=== PATIENT | female | born 1985 | race Two or more races ===

== ENCOUNTER 2016-05-15 20:28 | Emergency (ER) | payer OTHER ==
[2016-05-15 20:37] VITALS: BP 121/76; PULSE 74; TEMP 98.1; BMI 31.2
--- NOTE | 2016-05-15 20:42 | PDOC ---
History of Present Illness - General Chief Complaint: Sore Throat Stated Complaint: SORE THROAT Time Seen by Provider: 05/15/16 20:37 History Source: Patient Exam Limitations: No Limitations - History of Present Illness Timing/Duration: 24 hours Associated Symptoms: reports: fever/chills ("100.3" subsided). denies: chest pain, cough, diaphoresis, headaches, loss of appetite, nausea/vomiting, shortness of breath Past History - Travel Traveled outside of the country in the last 30 days: No Close contact w/someone who was outside of country & ill: No - Past Medical History Allergies/Adverse Reactions: Allergies Allergy/AdvReac Type Severity Reaction Status Date / Time butorphanol tartrate Allergy Itching Verified 06/27/15 19:46 [From Stadol] Home Medications: Ambulatory Orders NK [No Known Home Medication] 05/15/16 Asthma: Yes Cancer: No Cardiac Disorders: No Diabetes: No HTN: No ( related) Seizures: No Thyroid Disease: No - Reproductive History (#): 3 Para: 1 Cervical CA: No Dysfunctional Uterine Bleeding: No Ectopic : No Endometrial CA: No Polycystic Ovaries: No Therapeutic (s) & number: No Tubal Ligation: No Spontaneous : 1 - Immunization History Immunization Up to Date: Yes - Psycho/Social/Smoking Cessation Hx Anxiety: No Suicidal Ideation: No Smoking Status: No Smoking History: Never smoked Have you smoked in the past 12 months: No Number of Cigarettes Smoked Daily: 0 Hx Alcohol Use: No Drug/Substance Use Hx: No Hx Substance Use Treatment: No Review of Systems - Review of Systems Able to Perform ROS?: Yes Comments:: 05/15/16 20:40 CONSTITUTIONAL: Absent: fever, chills, diaphoresis, generalized weakness, malaise, loss of appetite HEENT: +sore throat "white dot" to right tonsil Absent: rhinorrhea, nasal congestion, throat pain, throat swelling, difficulty swallowing, mouth swelling, ear pain, eye pain, visual Changes CARDIOVASCULAR: Absent: chest pain, loss of consciousness, palpitations, irregular heart rate, peripheral edema RESPIRATORY: Absent: cough, shortness of breath, dyspnea with exertion, orthopnea, wheezing, stridor, hemoptysis GASTROINTESTINAL: Absent: abdominal pain, abdominal distension, nausea, vomiting, diarrhea, constipation, melena, hematochezia GENITOURINARY: Absent: dysuria, frequency, urgency, hesitancy, hematuria, flank pain, genital pain MUSCULOSKELETAL: Absent: myalgia, arthralgia, joint swelling SKIN: Absent: rash, itching, pallor Is the patient limited [place] proficient: No *Physical Exam - Vital Signs Last Vital Signs Temp Pulse Resp BP Pulse Ox 98.1 F 74 16 121/76 98 05/15/16 20:35 05/15/16 20:35 05/15/16 20:35 05/15/16 20:35 05/15/16 20:35 - Physical Exam Comments: 05/15/16 20:39 GENERAL: Well developed, well nourished. Awake and alert. No acute distress. 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 PERRLA, EOMI. No conjunctival pallor. Sclera are non- icteric. Moist mucous membranes. Oropharynx is clear. NECK: Supple. Full ROM. No JVD. Carotid pulses 2+ and symmetric, without bruits. No thyromegaly. No lymphadenopathy. CARDIOVASCULAR: Regular rate and rhythm. No murmurs, rubs, or gallops. Distal pulses are 2+ and symmetric. PULMONARY: No evidence of respiratory distress. Lungs clear to auscultation bilaterally. No wheezing, rales or rhonchi. ABDOMINAL: Soft. Non-tender. Non-distended. No rebound or guarding. No organomegaly. Normoactive bowel sounds. SKIN: Warm and dry. Normal capillary refill. No rashes. No jaundice. *DC/Admit/Observation/Transfer Diagnosis at time of Disposition: Pharyngitis Qualifiers: Pharyngitis/tonsillitis etiology: unspecified etiology Qualified Code(s): J02.9 - Acute pharyngitis, unspecified - Discharge Dispostion Disposition: HOME Condition at time of disposition: Stable - Referrals Referrals: Federico Vázquez MD [Staff Physician] - - Patient Instructions Printed Discharge Instructions: Viral Pharyngitis Additional Instructions: Increase fluids Tylenol/Motrin as needed for pain or fever Follow up with your physician this week Return to the Er for severe/persistent/worsening symptoms Progress Note - Progress Note Progress Note: 31-year-old female presents to the emergency department complaining of sore throat since last evening. Patient says she had a fever this morning of 100.3 which she took Tylenol. She denies any headache, dizziness, lightheadedness, earaches, nasal congestion, sinus pain, difficulty swallowing, neck pains, chest pain, shortness of breath or abdominal discomfort. Patient noticed a white patch to her right tonsil this morning.
== END 2016-05-15 21:54 | disposition home or self-care (01) ==
LOC: JERFT 20:28
DX: J02.9 Acute pharyngitis, unspecified (principal); J45.909 Unspecified asthma, uncomplicated
CPT/HCPCS: 87070; 87077; 87430; 99281-25

== ENCOUNTER 2016-05-22 19:24 | Emergency (ER) | payer OTHER ==
[2016-05-22 19:29] VITALS: BP 112/67; PULSE 90; TEMP 97.9; BMI 29.9
--- NOTE | 2016-05-22 20:47 | PDOC ---
History of Present Illness - General Chief Complaint: Sore Throat Stated Complaint: COLD SYMPTOMS Time Seen by Provider: 05/22/16 20:33 History Source: Patient Exam Limitations: No Limitations - History of Present Illness Initial Comments: CHIEF COMPLAINT: 31 y/o afebrile female with no significant PMH c/o continued sore throat. HISTORY OF PRESENT ILLNESS: The patient was seen here last week with complaints of sore throat. Her rapid strep and strep culture were negative. She states she has been taking tylenol and gargling with warm salt water but her symptoms have not improved. She had a fever yesterday and today of 101. She states it hurts to swallow. She denies chills, LARKIN, cough, runny nose, n/v/d , CP, SOB, abd pain, back pain. Vital signs on arrival are within normal limits. REVIEW OF SYSTEMS: GENERAL/CONSTITUTIONAL: + fever. No weakness. No weight change. HEAD, EYES, EARS, NOSE AND THROAT: No change in vision. No ear pain or discharge. +sore throat. CARDIOVASCULAR: No chest pain or shortness of breath. RESPIRATORY: No cough, wheezing, or hemoptysis. GASTROINTESTINAL: No abd pain, nausea, vomiting, diarrhea. GENITOURINARY: No dysuria, frequency, or change in urination. MUSCULOSKELETAL: No joint or muscle swelling or pain. No neck or back pain. SKIN: No rash or easy bruising. NEUROLOGIC: No headache, vertigo, loss of consciousness, or loss of sensation. PHYSICAL EXAM: GENERAL: The patient is awake, alert, and fully oriented, in no acute distress. She is well appearing and ambulatory. HEAD: Normal with no signs of trauma. ENT: Pupils equal, round and reactive to light, extraocular movements intact, sclera anicteric, conjunctiva clear. 1+ erythematous tonsils without exudate. Tender, anterior cervical lymphadenopathy. Uvula midline. No soft/hard palate deformities. No petechia. LUNGS: Clear to auscultation bilaterally. Normal excursion. No respiratory distress or use of accessory muscles. CV: RRR, S1/S2, no MRG. Cap refill < 2 sec. ABDOMEN: Soft, non-distended, non-tender even to deep palpation, no hepatomegaly or splenomegaly, no masses. EXTREMITIES: Normal range of motion, no edema. NEUROLOGICAL: Normal speech, normal gait. CN II-XII grossly intact. PSYCH: Normal mood, normal affect. SKIN: Warm, dry, normal turgor, no rashes or lesions noted. Past History - Past Medical History Allergies/Adverse Reactions: Allergies Allergy/AdvReac Type Severity Reaction Status Date / Time butorphanol tartrate Allergy Itching Verified 05/22/16 19:26 [From Stadol] Home Medications: Ambulatory Orders Azithromycin [Zithromax 250mg Tablets -] 250 mg PO UTDICT #6 tab 05/22/16 Asthma: Yes Cancer: No Cardiac Disorders: No Diabetes: No HTN: No ( related) Seizures: No Thyroid Disease: No - Reproductive History (#): 3 Para: 1 Cervical CA: No Dysfunctional Uterine Bleeding: No Ectopic : No Endometrial CA: No Polycystic Ovaries: No Therapeutic (s) & number: No Tubal Ligation: No Spontaneous : 1 - Immunization History Immunization Up to Date: Yes - Psycho/Social/Smoking Cessation Hx Anxiety: No Suicidal Ideation: No Smoking Status: No Smoking History: Never smoked Have you smoked in the past 12 months: No Number of Cigarettes Smoked Daily: 0 Information on smoking cessation initiated: No Hx Alcohol Use: No Drug/Substance Use Hx: No Hx Substance Use Treatment: No *Physical Exam - Vital Signs Last Vital Signs Temp Pulse Resp BP Pulse Ox 97.9 F 90 14 112/67 99 05/22/16 19:27 05/22/16 19:27 05/22/16 19:27 05/22/16 19:27 05/22/16 19:27 Medical Decision Making - Medical Decision Making a/p: 31 y/o female with sore throat and fever for the past 1 week. Plan is as follows: 1. hcg 2. rapid strep hcg - negative rapid strep - negative Ordered PO decadron Will discharge to home with rx for a zpack. SUggested she take entire course, take ibuprofen for pain/swelling and f/u with Dr. Vázquez if no improvement in symptoms within 3 days. Instructed her to return to the ER with any worsening or concerning symptoms. The patient verbalizes understanding of all instructions, has no further questions and is awaiting discharge. *DC/Admit/Observation/Transfer Diagnosis at time of Disposition: Pharyngitis Qualifiers: Pharyngitis/tonsillitis etiology: unspecified etiology Qualified Code(s): J02.9 - Acute pharyngitis, unspecified - Discharge Dispostion Disposition: HOME Condition at time of disposition: Improved - Prescriptions Prescriptions: Azithromycin [Zithromax 250mg Tablets -] 250 mg PO UTDICT #6 tab - Referrals Referrals: Mya Hendrix MD [Primary Care Provider] - Call tomorrow Federico Vázquez MD [Staff Physician] - (Call if no improvement in symptoms by the end of the week) - Patient Instructions Printed Discharge Instructions: DI for Pharyngitis/Tonsillopharyngitis -- Adult Additional Instructions: Discharge Instructions: -Take antibiotics as prescribed; they were sent to your pharmacy -Take 600mg of Ibuprofen every 6 hours with food for pain/swelling -Follow up with Dr. Vázquez if no improvement in symptoms within 3 days.
[2016-05-22] MEDS ORDERED: DEXAMETHASONE LIQUID 0.5 MG/5 ML 240 ML BULK BOTTLE PO ONE (21:16)
[2016-05-22] MEDS ORDERED: DEXAMETHASONE SOD PHOSPHATE 4 MG/1 ML VIAL ONE (21:21)
== END 2016-05-22 21:43 | disposition home or self-care (01) ==
LOC: JERFT 19:24
DX: J02.9 Acute pharyngitis, unspecified (principal)
CPT/HCPCS: 84703; 87070; 87430; 99281-25

== ENCOUNTER 2016-08-28 10:20 | Emergency (ER) | payer OTHER ==
[2016-08-28 10:33] VITALS: BP 120/66; PULSE 92; TEMP 98.7; BMI 28.0
--- NOTE | 2016-08-28 11:34 | PDOC ---
History of Present Illness - General Chief Complaint: Lightheaded Stated Complaint: DIZZINESS Time Seen by Provider: 08/28/16 10:38 History Source: Patient Exam Limitations: No Limitations - History of Present Illness Initial Comments: 08/28/16 11:30 31 year old female with history of asthma presents with headache, blurred vision and nausea. Also reports sinus congestion since Saturday08/25/16. Denies fever or chills. States took acetaminophen with excedrin that helped but temporarily. 08/28/16 11:39 Timing/Duration: 1 week Severity: moderate Modifying Factors: improves with: medication Associated Symptoms: reports: headaches Aspirin Received prior to arrival: Yes: no aspirin today Asa Contraindications(Core Measure): No: Allergy Beta Brenna Contraindications(Core Measure): Yes: Not Prescribed Beta Brenna Given by EMS(Core Measure): No Beta Brenna Taken at Home(Core Measure): No Beta Brenna Not Indicated at this Time(Core Measure): No Past History - Travel Traveled outside of the country in the last 30 days: No Close contact w/someone who was outside of country & ill: No - Past Medical History Allergies/Adverse Reactions: Allergies Allergy/AdvReac Type Severity Reaction Status Date / Time butorphanol tartrate Allergy Itching Verified 08/28/16 10:33 [From Stadol] Home Medications: Ambulatory Orders Azithromycin 500 mg PO DAILY #3 tablet 08/28/16 Cetirizine HCl [Zyrtec -] 10 mg PO DAILY #30 tablet 08/28/16 Asthma: Yes Cancer: No Cardiac Disorders: No Diabetes: No HTN: No ( related) Seizures: No Thyroid Disease: No - Reproductive History (#): 3 Para: 1 Cervical CA: No Dysfunctional Uterine Bleeding: No Ectopic : No Endometrial CA: No Polycystic Ovaries: No Therapeutic (s) & number: No Tubal Ligation: No Spontaneous : 1 - Immunization History Immunization Up to Date: Yes - Psycho/Social/Smoking Cessation Hx Anxiety: No Suicidal Ideation: No Smoking Status: No Smoking History: Never smoked Have you smoked in the past 12 months: No Number of Cigarettes Smoked Daily: 0 Information on smoking cessation initiated: No Hx Alcohol Use: No Drug/Substance Use Hx: No Hx Substance Use Treatment: No Review of Systems - Review of Systems Able to Perform ROS?: Yes Is the patient limited Japanese proficient: No Constitutional: No: Chills, Fever, Loss of Appetite HEENTM: Yes: Nose Congestion Respiratory: No: Cough Cardiac (ROS): Yes: Lightheadedness ABD/GI: Yes: Nausea. No: Poor Appetite, Vomiting : No: Burning, Dysuria, Discharge Neurological: Yes: Headache *Physical Exam - Vital Signs Last Vital Signs Temp Pulse Resp BP Pulse Ox 98.7 F 92 H 18 120/66 100 08/28/16 10:27 08/28/16 10:27 08/28/16 10:27 08/28/16 10:27 08/28/16 10:27 - Physical Exam General Appearance: Yes: Nourished, Appropriately Dressed. No: Apparent Distress HEENT: positive: LINUS, TMs Normal, Pharynx Normal, Nasal Congestion, Sinus Tenderness Neck: positive: Supple Respiratory/Chest: positive: Lungs Clear. 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 NML intact, Fully Oriented, Alert, Normal Response, Motor Strength 08/17 Medical Decision Making - Medical Decision Making 08/28/16 11:44 31 year old female with headache and sinus congestion acetaminophen 1gm claritin Rx: acetaminophen z-pack zyrtec *DC/Admit/Observation/Transfer Diagnosis at time of Disposition: Headache Qualifiers: Headache type: unspecified Headache chronicity pattern: acute headache Intractability: not intractable Qualified Code(s): R51 - Headache Sinusitis Qualifiers: Sinusitis location: maxillary Chronicity: acute Recurrence: recurrent Qualified Code(s): J01.01 - Acute recurrent maxillary sinusitis - Discharge Dispostion Disposition: HOME Condition at time of disposition: Good Admit: No - Prescriptions Prescriptions: Azithromycin 500 mg PO DAILY #3 tablet Cetirizine HCl [Zyrtec -] 10 mg PO DAILY #30 tablet - Referrals Referrals: Mya Hendrix MD [Primary Care Provider] - - Patient Instructions Printed Discharge Instructions: Sinus Headache Additional Instructions: Take medication as prescribed. Return to emergency for worsening symptoms - Post Discharge Activity Work/School Note: Back to Work
[2016-08-28] MEDS ORDERED: LORATADINE 10 MG TABLET PO ONE (11:37)
[2016-08-28] MEDS ORDERED: ACETAMINOPHEN 500 MG TABLET (FP) PO ONE (11:37)
[2016-08-28] MEDS ORDERED: ACETAMINOPHEN 500 MG TABLET (FP) ONE (11:40)
[2016-08-28] MEDS ORDERED: LORATADINE 10 MG TABLET ONE (11:40)
== END 2016-08-28 12:17 | disposition home or self-care (01) ==
LOC: JERFT 10:20
DX: J01.01 Acute recurrent maxillary sinusitis (principal); R51 Headache
CPT/HCPCS: 99281-25

== ENCOUNTER 2017-10-18 08:25 | Emergency (ER) | payer SELFPAY ==
[2017-10-18 08:33] VITALS: BP 112/63; PULSE 89; TEMP 99; BMI 30.2
--- NOTE | 2017-10-18 09:19 | PDOC ---
History of Present Illness - General Chief Complaint: Back Pain Stated Complaint: BACK PAIN (5 WKS ) Time Seen by Provider: 10/18/17 09:02 History Source: Patient Exam Limitations: Clinical Condition - History of Present Illness Initial Comments: 10/18/17 09:15 Patient LMP 09/09/17 with h/o 5wks present with complains of right upper back pains, urinary urgency and frequency for 3 days now. report taking motrin which helps with pains but comes back. Denies fever, chills. report nausea which could be related to Severity: mild Modifying Factors: improves with: movement Associated Symptoms: denies: denies symptoms, chest pain, cough, diaphoresis, fever/chills, headaches, loss of appetite, malaise, nausea/vomiting, rash, seizure, shortness of breath, syncope, weakness, other Aspirin Received prior to arrival: Yes: no aspirin today Beta Brenna Contraindications(Core Measure): Yes: Not Prescribed Beta Brenna Given by EMS(Core Measure): No Beta Brenna Taken at Home(Core Measure): No Beta Brenna Not Indicated at this Time(Core Measure): No Past History - Past Medical History Allergies/Adverse Reactions: Allergies Allergy/AdvReac Type Severity Reaction Status Date / Time butorphanol tartrate Allergy Itching Verified 10/18/17 08:28 [From [facility]] Home Medications: Ambulatory Orders Acetaminophen [Acetaminophen 8 Hour] 650 mg PO PRN PRN 7 Days #20 tablet.er 09/30 Nitrofurantoin Monohyd/M-Cryst [Macrobid -] 100 mg PO BID #14 capsule 10/18/17 Vit 93/Iron Fum/Folic [ Formula Tablet] 1 each PO DAILY Asthma: Yes Cancer: No Cardiac Disorders: No COPD: No Diabetes: No HTN: No ( related) Seizures: No Thyroid Disease: No - Reproductive History (#): 3 Para: 1 Cervical CA: No Dysfunctional Uterine Bleeding: No Ectopic : No Endometrial CA: No Polycystic Ovaries: No Therapeutic (s) & number: No Tubal Ligation: No Spontaneous : 1 - Immunization History Immunization Up to Date: Yes - Suicide/Smoking/Psychosocial Hx Smoking Status: No Smoking History: Never smoked Have you smoked in the past 12 months: No Number of Cigarettes Smoked Daily: 0 Information on smoking cessation initiated: No Hx Alcohol Use: No Drug/Substance Use Hx: No Substance Use Type: None Hx Substance Use Treatment: No Review of Systems - Review of Systems Is the patient limited Jamaican proficient: No Constitutional: Yes: See HPI. No: Symptoms Reported, Chills, Diaphoresis, Fever , Loss of Appetite, Malaise, Night Sweats, Weakness, Weight Stable, Unintentional Wgt. Loss, Unexplained wgt Loss, Other HEENTM: No: Symptoms Reported, See HPI, Eye Pain, Blurred Vision, Tearing, Recent change in vision, Double Vision, Cataracts, Ear Pain, Ocular Prothesis, Ear Discharge, Nose Pain, Nose Congestion, Tinnitus, Nose Bleeding, Hearing Loss , Throat Pain, Throat Swelling, Mouth Pain, Dental Problems, Difficulty Swallowing, Mouth Swelling, Other Respiratory: No: Symptoms reported, See HPI, Cough, Orthopnea, Shortness of Breath, SOB with Exertion, SOB at Rest, Stridor, Wheezing, Productive cough, Hemoptysis, Other Cardiac (ROS): No: Symptoms Reported, See HPI, Chest Pain, Edema, Irregular Heart Rate, Lightheadedness, Palpitations, Syncope, Chest Tightness, Other ABD/GI: Yes: See HPI, Nausea. No: Symptoms Reported, Abdominal Distended, Abd. Pain w/ defecation, Blood Streaked Bowels, Constipated, Diarrhea, Difficulty Swallowing, Poor Appetite, Poor Fluid Intake, Rectal Bleeding, Vomiting, Indigestion, Abdominal cramping, Tarry Stools, Other : Yes: See HPI Musculoskeletal: Yes: Back Pain. No: Symptoms Reported, See HPI, Gout, Joint Pain, Joint Swelling, Muscle Pain, Muscle Weakness, Neck Pain, Joint Stiffness, Other Integumentary: No: Symptoms Reported, See HPI, Bruising, Change in Color, Change in Hair/Nails, Dryness, Erythema, Flushing, Lesions, Lumps, Pallor, Pruritus, Rash, Sweating, Other Neurological: No: Symptoms reported, See HPI, Headache, Numbness, Paresthesia, Pre-Existing Deficit, Seizure, Tingling, Tremors, Weakness, Unsteady Gait, Ataxia, Dizziness, Other Psychiatric: No: Anxiety, Depression, Frequent Crying, Stressors, Sleep Pattern Change, Emotional Problems, Mood Swings, Change in Appetite, Other Endocrine: No: Symptoms Reported, See HPI, Excessive Sweating, Flushing, Intolerance to Cold, Intolerance to Heat, Increased Hunger, Increased Thirst, Increased Urine, Unexplained Weight Gain, Unexplained Weight Loss, Change in Weight, Other *Physical Exam - Vital Signs Last Vital Signs Temp Pulse Resp BP Pulse Ox 99.0 F 89 17 112/63 100 10/18/17 08:29 10/18/17 08:29 10/18/17 08:29 10/18/17 08:29 10/18/17 08:29 - Physical Exam General Appearance: Yes: Nourished, Appropriately Dressed HEENT: positive: Normal ENT Inspection Neck: positive: Normal Thyroid Respiratory/Chest: positive: Chest Tender, Lungs Clear, Normal Breath Sounds, Respiratory Distress, Accessory Muscle Use, Labored Respiration, Rapid RR, Decreased Breath Sounds, Paradoxal Breathing, Crackles, Rales, Rhonchi, Stridor , Wheezing, Hyperresonant, Dullness, Plerual Rub, Other Cardiovascular: positive: Regular Rhythm, Regular Rate, S1, S2, Edema, JVD, Murmur, Bradycardia, Tachycardia, Diastolic Murmur, Systolic Murmur, Gallop/S3, Gallop/S4, Irregularly Irregular, Irregular, Other Gastrointestinal/Abdominal: positive: Normal Bowel Sounds. negative: Tender Musculoskeletal: positive: Normal Inspection, Other (mild tenderness to right flank area. worsening with external rotation of hip to left. no midline tenderness). negative: CVA Tenderness Medical Decision Making - Medical Decision Making 10/18/17 09:20 5wks with upper back pains and urinary symptoms likely UTI vs nephrolithiasis UA sent. UCx to be sent Tylenol 975mg for pain reassess 10/18/17 10:05 UA reviewed . no sig findings. rx macrobid for possible UTI and Tylenol for pain advised on follow-up apt with VASCULAR RADIOLOGIST Dr. Egan in 4 days for reassessment *DC/Admit/Observation/Transfer Diagnosis at time of Disposition: Nephrolithiasis, Dysuria - Discharge Dispostion Disposition: HOME Condition at time of disposition: Good Decision to Admit order: No - Prescriptions Prescriptions: Acetaminophen [Acetaminophen 8 Hour] 650 mg PO PRN PRN 7 Days #20 tablet.er PRN Reason: Pain Nitrofurantoin Monohyd/M-Cryst [Macrobid -] 100 mg PO BID #14 capsule - Referrals Referrals: Mya Hendrix MD [Primary Care Provider] - - Patient Instructions Printed Discharge Instructions: Kidney Stones -- Adult Additional Instructions: Follow-up with VASCULAR RADIOLOGIST Dr. Egan as discussed - Post Discharge Activity
[2017-10-18] MEDS ORDERED: ACETAMINOPHEN 325 MG TABLET (FP) PO ONE (09:22)
[2017-10-18] MEDS ORDERED: ACETAMINOPHEN 325 MG TABLET (FP) ONE (09:25)
[2017-10-18 09:26] LABS: URINE APPEARANCE CLEAR; URINE BILIRUBIN NEGATIVE (<2.0 mg/dL); URINE COLOR LTYELLOW; URINE GLUCOSE (UA) NEGATIVE (NEGATIVE); URINE KETONE NEGATIVE (NEGATIVE); URINE LEUK ESTERASE NEGATIVE (NEGATIVE); URINE NITRITE NEGATIVE (NEGATIVE); URINE PROTEIN NEGATIVE (NEGATIVE); URINE UROBILINOGEN NEGATIVE mg/dL (0.2-1.0)
== END 2017-10-18 10:14 | disposition home or self-care (01) ==
LOC: JERFT 08:25
DX: O26.831 Pregnancy related renal disease, first trimester (principal); N28.89 Other specified disorders of kidney and ureter; N20.0 Calculus of kidney; Z3A.01 Less than 8 weeks gestation of pregnancy
CPT/HCPCS: 81003; 87086; 99281-25

== ENCOUNTER 2017-10-25 10:00 | Emergency (ER) | payer OTHER ==
[2017-10-25 10:13] VITALS: TEMP 98.7; BMI 30.2
[2017-10-25 11:20] LABS: BASO % 0.6 % (0-2.0); EOS % 2.7 % (0-4.5); HEMATOCRIT 39.7 % (32.4-45.2); HEMOGLOBIN 13.4 GM/dL (10.7-15.3); MCH 30.6 pg (25.7-33.7); MCHC 33.7 g/dl (32.0-36.0); MEAN CELL VOLUME 90.7 fl (80-96); MEAN PLT VOLUME 9.4 fl (7.5-11.1); MONO % 7.3 % (3.8-10.2); NEUT % 68.4 % (42.8-82.8); PLATELET COUNT 262 K/MM3 (134-434); RBC 4.38 M/mm3 (3.60-5.2); RDW 13.8 % (11.6-15.6); WHITE BLOOD COUNT 10.5 K/mm3 (4.0-10.0)
[2017-10-25 11:27] LABS: URINE APPEARANCE CLEAR; URINE BILIRUBIN NEGATIVE (<2.0 mg/dL); URINE COLOR LTYELLOW; URINE GLUCOSE (UA) NEGATIVE (NEGATIVE); URINE KETONE NEGATIVE (NEGATIVE); URINE LEUK ESTERASE NEGATIVE (NEGATIVE); URINE NITRITE NEGATIVE (NEGATIVE); URINE PROTEIN NEGATIVE (NEGATIVE); URINE UROBILINOGEN NEGATIVE mg/dL (0.2-1.0)
[2017-10-25] MEDS ORDERED: ACETAMINOPHEN 1000 MG/100 ML VIAL (NON FORMULARY) IVPB ONE (11:29)
[2017-10-25] MEDS ORDERED: ACETAMINOPHEN INJECTION 100 ML IVPB ONE (11:43)
[2017-10-25 11:48] LABS: CHLORIDE 103 mmol/L (98-107); POTASSIUM 4.1 mmol/L (3.5-5.1); SODIUM 139 mmol/L (136-145)
[2017-10-25 11:49] LABS: ALBUMIN 3.7 g/dl (3.4-5.0); ANION GAP 10 (8-16); BLOOD UREA NITROGEN 8 mg/dL (7-18); CALCIUM 9.2 mg/dL (8.5-10.1); CO2 26 mmol/L (21-32); GLUCOSE,RANDOM 73 mg/dL (74-106)
[2017-10-25 12:14] LABS: ALK PHOS 59 U/L (45-117); BILIRUBIN,TOTAL 0.4 mg/dL (0.2-1.0); CREATININE 0.6 mg/dL (0.55-1.02); SGOT/AST 13 U/L (15-37); SGPT/ALT 27 U/L (12-78); TOT PROT 7.5 g/dl (6.4-8.2)
--- NOTE | 2017-10-25 12:30 | PDOC ---
History of Present Illness - General Chief Complaint: Vaginal Bleeding Stated Complaint: VAGINAL BLEEDING (6 WKS ) Time Seen by Provider: 10/25/17 10:26 - History of Present Illness Initial Comments: 10/25/17 12:25 32 yo F @ 6 weeks by LMP presents to ED with lower abdominal pain. Pt states that she was initially seen in this ED last week for lower back pain. She was told she had a kidney stone and sent home with abx. She states that her lower back pain persisted and yesterday began to experience lower abdominal cramping as well as vaginal spotting. Pt denies F/C. Denies N/V/D. Denies dysuria. Pt denies surgical history. Past History - Past Medical History Allergies/Adverse Reactions: Allergies Allergy/AdvReac Type Severity Reaction Status Date / Time butorphanol tartrate Allergy Itching Verified 10/25/17 10:10 [From Stadol] Home Medications: Ambulatory Orders Vit 93/Iron Fum/Folic [ Formula Tablet] 1 each PO DAILY Albuterol Sulfate [Proventil HFA Inhaler -] 1 - 2 inh PO PRN 10/25/17 Asthma: Yes Cancer: No Cardiac Disorders: No COPD: No Diabetes: No HTN: ( related) Seizures: No Thyroid Disease: No - Reproductive History (#): 3 Para: 1 Cervical CA: No Dysfunctional Uterine Bleeding: No Ectopic : No Endometrial CA: No Polycystic Ovaries: No Therapeutic (s) & number: No Tubal Ligation: No Spontaneous : 1 - Immunization History Immunization Up to Date: Yes - Suicide/Smoking/Psychosocial Hx Smoking Status: No Smoking History: Never smoked Have you smoked in the past 12 months: No Number of Cigarettes Smoked Daily: 0 Hx Alcohol Use: No Drug/Substance Use Hx: No Substance Use Type: None Hx Substance Use Treatment: No Review of Systems - Review of Systems Comments:: 10/25/17 12:31 "GENERAL/CONSTITUTIONAL: No fever or chills. No weakness. HEAD, EYES, EARS, NOSE AND THROAT: No change in vision. No ear pain or discharge. No sore throat. CARDIOVASCULAR: No chest pain or shortness of breath. RESPIRATORY: No cough, wheezing, or hemoptysis. GASTROINTESTINAL: + lower abdominal pain, No nausea, vomiting, diarrhea or constipation. GENITOURINARY: + vaginal spotting, No dysuria, frequency, or change in urination. MUSCULOSKELETAL: No joint or muscle swelling or pain. No neck or back pain. SKIN: No rash NEUROLOGIC: No headache, vertigo, loss of consciousness, or change in strength/ sensation. ENDOCRINE: No increased thirst. No abnormal weight change. HEMATOLOGIC/LYMPHATIC: No anemia, easy bleeding, or history of blood clots. ALLERGIC/IMMUNOLOGIC: No hives or skin allergy. " *Physical Exam - Vital Signs Last Vital Signs Temp Pulse Resp BP Pulse Ox 98.7 F 94 H 19 107/66 100 10/25/17 10:10 10/25/17 10:10 10/25/17 10:10 10/25/17 10:10 10/25/17 10:10 - Physical Exam Comments: 10/25/17 12:31 "GENERAL: Awake, alert, and fully oriented, in no acute distress. HEAD: No signs of trauma EYES: PERRLA, EOMI, sclera anicteric, conjunctiva clear ENT: Auricles normal inspection, hearing grossly normal, nares patent, oropharynx clear without exudates. Moist mucosa NECK: Nontender, no stepoffs, Normal ROM, supple, no lymphadenopathy, JVD, or masses LUNGS: Breath sounds equal, clear to auscultation bilaterally. No wheezes, and no crackles HEART: Regular rate and rhythm, normal S1 and S2, no murmurs, rubs or gallops ABDOMEN: + mild RLQ tenderness, normoactive bowel sounds. No guarding, no rebound. No masses EXTREMITIES: Normal range of motion, no edema. No clubbing or cyanosis. No cords, erythema, or tenderness NEUROLOGICAL: Cranial nerves II through XII intact. 5/5 strength and sensation in all extremities, Normal speech, normal gait, normal cerebellar function SKIN: Warm, Dry, normal turgor, no rashes or lesions noted. : scant blood in vault, no CMT, os closed ED Treatment Course - LABORATORY CBC & Chemistry Diagram: 10/25/17 11:10 10/25/17 11:10 - ADDITIONAL ORDERS Additional order review: Laboratory Results 10/25/17 10/25/17 11:10 11:10 Sodium 139 Potassium 4.1 Chloride 103 Carbon Dioxide 26 Anion Gap 10 BUN 8 Creatinine 0.6 Creat Clearance w eGFR > 60 Random Glucose 73 L Calcium 9.2 Total Bilirubin 0.4 AST 13 L ALT 27 Alkaline Phosphatase 59 Total Protein 7.5 Albumin 3.7 Beta HCG, Quant 822775.3 Urine Color Ltyellow Urine Appearance Clear Urine pH 6.0 Ur Specific [place] 1.014 Urine Protein Negative Urine Glucose (UA) Negative Urine Ketones Negative Urine Blood Negative Urine Nitrite Negative Urine Bilirubin Negative Urine Urobilinogen Negative Ur Leukocyte Esterase Negative 10/25/17 11:10 RBC 4.38 MCV 90.7 MCHC 33.7 RDW 13.8 MPV 9.4 D Neutrophils % 68.4 D Lymphocytes % 21.0 D Monocytes % 7.3 D Eosinophils % 2.7 D Basophils % 0.6 - RADIOLOGY Radiology Studies Ordered: Category Date Time Status PELVIS(OTHER) US [US] Stat Ultrasound 10/25/17 11:22 Ordered TRANSVAGINAL ULTRASOUND US [US] Stat Ultrasound 10/25/17 10:57 Ordered - Medications Given in the ED: ED Medications Discontinued Medications Generic Name Dose Route Start Last Admin Trade Name Freq PRN Reason Stop Dose Admin Acetaminophen 1,000 mg 10/25/17 11:29 10/25/17 11:48 Ofirmev Injection - IVPB 10/25/17 11:30 1,000 mg ONCE ONE Administration Medical Decision Making - Medical Decision Making 10/25/17 12:31 32 F @ 6 weeks by LMP presents to ED with RLQ pain and vaginal spotting. Was seen here last week for lower abdominal pain and diagnosed with kidney stone, though UA at the time was completely normal and no imaging was done. Will need to r/o ectopic . Also consider appy, though less likely given duration of symptoms and lack of fevers or vomiting. - Labs, UA, T&S - TVUS - Abd US to r/o appy - Tylenol 10/25/17 14:11 Labs wnl TVUS shows IUP @ 8 weeks. No evidence of ectopic. No evidence of acute appy on US. Pt reassessed - now reports significant improvement in pain. Repeat abdominal exam with no tenderness in RLQ. I discussed the results with pt and explained that without additional imaging, we cannot definitively rule out appendicitis. However, pt states that she feels much better and does not wish to stay for more imaging. My suspicion for acute appy is very low given now benign abdominal exam. Pt instructed to return if symptoms recur. Pt is well appearing, with normal vitals. Clinically stable for DC at this time. I discussed the physical exam findings, ancillary test results and final diagnoses with the patient. I answered all of the patient's questions. The patient was satisfied with the care received and felt comfortable with the discharge plan and treatment plan. The patient agrees to follow up with the primary care physician within 24-72 hours. *DC/Admit/Observation/Transfer Diagnosis at time of Disposition: Abdominal pain in - Discharge Dispostion Disposition: HOME - Referrals Referrals: Mya Hendrix MD [Primary Care Provider] - - Patient Instructions Printed Discharge Instructions: DI for Abdominal Pain -- Early Additional Instructions: Your ultrasound today showed an intrauterine at 8 weeks gestational age. Please follow up with your OB for further management of your . Because we did not obtain a CT scan of your abdomen, we cannot definitively rule out appendicitis, a potentially life-threatening emergency. If you experience recurrent or worsening pain, fevers, vomiting, or any other concerning symptoms, return to the ER immediately. - Post Discharge Activity - Attestations Physician Attestion: 10/25/17 14:20 I, Dr. Gigi Lanier MD, attest that this document has been prepared under my direction and personally reviewed by me in its entirety. I further attest, that it accurately reflects all work, treatment, procedures and medical decision -making performed by me.
[2017-10-25 14:54] VITALS: BP 112/66; PULSE 74
== END 2017-10-25 14:55 | disposition home or self-care (01) ==
LOC: JER 10:00
PROC: 3E033NZ Introduction of Analgesics, Hypnotics, Sedatives into Peripheral Vein, Percutaneous Approach (ICD-10-PCS; principal; 2017-10-25)
DX: O26.891 Other specified pregnancy related conditions, first trimester (principal); R10.30 Lower abdominal pain, unspecified; O13.1 Gestational [pregnancy-induced] hypertension without significant proteinuria, first trimester; Z3A.08 8 weeks gestation of pregnancy; Z87.442 Personal history of urinary calculi
CPT/HCPCS: 36415; 76775-TC; 76830-TC; 76856-TC; 80053; 81003; 84702; 85025; 86850; 86900; 86901; 87086; 96374; 99282-25; J0131

== ENCOUNTER 2018-02-17 22:39 | Emergency (ER) | payer OTHER ==
[2018-02-17 22:55] VITALS: BP 114/63; PULSE 94; TEMP 97.9; BMI 33.3
[2018-02-17 23:53] LABS: BASO % 0.5 % (0-2.0); EOS % 2.6 % (0-4.5); HEMATOCRIT 35.7 % (32.4-45.2); HEMOGLOBIN 12.6 GM/dL (10.7-15.3); LYMPH % 16.6 % (8-40); MCH 31.5 pg (25.7-33.7); MCHC 35.1 g/dl (32.0-36.0); MEAN CELL VOLUME 89.8 fl (80-96); MEAN PLT VOLUME 10.3 fl (7.5-11.1); MONO % 7.4 % (3.8-10.2); NEUT % 72.9 % (42.8-82.8); PLATELET COUNT 176 K/MM3 (134-434); RBC 3.98 M/mm3 (3.60-5.2); RDW 13.6 % (11.6-15.6); WHITE BLOOD COUNT 15.6 K/mm3 (4.0-10.0)
--- NOTE | 2018-02-17 23:54 | PDOC ---
History of Present Illness - General Chief Complaint: Pain Stated Complaint: PAIN Time Seen by Provider: 02/17/18 23:11 History Source: Patient Exam Limitations: No Limitations - History of Present Illness Travel History: No Initial Comments: 02/18/18 01:02 Best Contact: PCP:Dr. Henderson Pmhx:Asthma Pshx: 0 Allergies:Butorphanol tartrate/rash FH:0 Social Hx: Cigarettes/ 0 Alcohol/ 0 Drugs/0 LMP:08/14/2017 33-year-old female presents to the emergency department complaining of right upper quadrant abdominal discomfort. Pain is described as 2/10 gas-like nonradiating intermittent [id number]. There are no alleviating or exacerbating factors. Patient states the pain came on as she was cooking but denied eating the food when the pain came on. Patient states she might of stretched and pulled a muscle but wasn't sure. Patient came to the emergency department, she was directly immediately to labor and delivery for monitoring. Patient states she was discharged from L&D and sent to the emergency department for right upper quadrant abdominal pains. Patient denies fever, chills, nausea/ vomiting, headache, dizziness, lightheadedness, facial pains, neck pain/ stiffness, back pains, chest pain, shortness of breath, flank pains, urinary symptoms, Gabriel numbness or tingling sensation. Patient states she feels a lot better than when she initially came into the ER. 02/18/18 01:44 Past History - Past Medical History Allergies/Adverse Reactions: Allergies Allergy/AdvReac Type Severity Reaction Status Date / Time butorphanol tartrate Allergy Intermediate Itching Verified 02/17/18 22:55 [From Stadol] Home Medications: Ambulatory Orders Vit 93/Iron Fum/Folic [ Formula Tablet] 1 each PO DAILY Albuterol Sulfate [Proventil HFA Inhaler -] 1 - 2 inh PO PRN 10/25/17 Asthma: Yes Cancer: No Cardiac Disorders: No COPD: No Diabetes: No HTN: ( related) Seizures: No Thyroid Disease: No - Reproductive History (#): 3 Para: 1 Cervical CA: No Dysfunctional Uterine Bleeding: No Ectopic : No Endometrial CA: No Polycystic Ovaries: No Therapeutic (s) & number: No Tubal Ligation: No Spontaneous : 1 - Immunization History Immunization Up to Date: Yes - Suicide/Smoking/Psychosocial Hx Smoking Status: No Smoking History: Never smoked Have you smoked in the past 12 months: No Number of Cigarettes Smoked Daily: 0 Hx Alcohol Use: No Drug/Substance Use Hx: No Substance Use Type: None Hx Substance Use Treatment: No Review of Systems - Review of Systems Able to Perform ROS?: Yes Comments:: 02/18/18 01:05 CONSTITUTIONAL: Absent: fever, chills, diaphoresis, generalized weakness, malaise, loss of appetite HEENT: Absent: rhinorrhea, nasal congestion, throat pain, throat swelling, difficulty swallowing, mouth swelling, ear pain, eye pain, visual Changes CARDIOVASCULAR: Absent: chest pain, loss of consciousness, palpitations, irregular heart rate, peripheral edema RESPIRATORY: Absent: cough, shortness of breath, dyspnea with exertion, orthopnea, wheezing, stridor, hemoptysis GASTROINTESTINAL: +RUQ pain Absent: abdominal distension, nausea, vomiting, diarrhea, constipation, melena, hematochezia GENITOURINARY: Absent: dysuria, frequency, urgency, hesitancy, hematuria, flank pain, genital pain MUSCULOSKELETAL: Absent: myalgia, arthralgia, joint swelling SKIN: Absent: rash, itching, pallor HEMATOLOGIC/IMMUNOLOGIC: Absent: easy bleeding, easy bruising, lymphadenopathy, frequent infections ENDOCRINE: Absent: unexplained weight gain, unexplained weight loss, heat intolerance, cold intolerance NEUROLOGIC: Absent: headache, focal weakness or paresthesias, dizziness, unsteady gait, seizure, mental status changes, bladder or bowel incontinence PSYCHIATRIC: Absent: anxiety, depression, suicidal or homicidal ideation, hallucinations. Is the patient limited Georgian proficient: No *Physical Exam - Vital Signs Last Vital Signs Temp Pulse Resp BP Pulse Ox 97.9 F 94 H 18 114/63 98 02/17/18 22:52 02/17/18 22:52 02/17/18 22:52 02/17/18 22:52 02/17/18 22:52 - Physical Exam Comments: 02/18/18 01:05 GENERAL: Well developed, well nourished. Awake and alert. No acute distress. HEENT: Normocephalic, atraumatic. PERRLA, EOMI. No conjunctival pallor. Sclera are non- icteric. Moist mucous membranes. Oropharynx is clear. NECK: Supple. Full ROM. No JVD. Carotid pulses 2+ and symmetric, without bruits. No thyromegaly. No lymphadenopathy. CARDIOVASCULAR: Regular rate and rhythm. No murmurs, rubs, or gallops. Distal pulses are 2+ and symmetric. PULMONARY: No evidence of respiratory distress. Lungs clear to auscultation bilaterally. No wheezing, rales or rhonchi. ABDOMINAL: Soft. Non-tender. Non-distended. No rebound or guarding. No organomegaly. Normoactive bowel sounds. MUSCULOSKELETAL Normal range of motion at all joints. No bony deformities or tenderness. No CVA tenderness. EXTREMITIES: No cyanosis. No clubbing. No edema. No calf tenderness. SKIN: Warm and dry. Normal capillary refill. No rashes. No jaundice. NEUROLOGICAL: Alert, awake, appropriate. Cranial nerves 2-12 intact. No deficits to light touch and temperature in face, upper extremities and lower extremities. No motor deficits in the in face, upper extremities and lower extremities. Normoreflexic in the upper and lower extremities. Normal speech. Toes are down- going bilaterally. Gait is normal without ataxia. PSYCHIATRIC: Cooperative. Good eye contact. Appropriate mood and affect. ED Treatment Course - LABORATORY CBC & Chemistry Diagram: 02/17/18 23:10 02/17/18 23:10 - RADIOLOGY Radiology Studies Ordered: Category Date Time Status ABDOMEN US -LIMITED [US] Stat Ultrasound 02/17/18 23:03 Ordered US(SINGLE) [US] Stat Ultrasound 02/17/18 23:50 Ordered Radiograph Interpretation: 02/18/18 01:05 US abd: There is a single intrauterine gestation. Estimated gestational age is 25 weeks and 4 days. The estimated weight is 794 g. Presentation is cephalic. There is no posterior splint previous. Amniotic fluid volume his objectively normal. cardiac activity is documented at 148 bpm. No signs of cholecystitis. Common bile duct measures at 2 mm. *DC/Admit/Observation/Transfer Diagnosis at time of Disposition: Abdominal pain Qualifiers: Abdominal location: right upper quadrant Qualified Code(s): R10.11 - Right upper quadrant pain - Discharge Dispostion Disposition: HOME Condition at time of disposition: Stable Decision to Admit order: No - Referrals Referrals: Mya Hendrix MD [Primary Care Provider] - Sergio Manzanares MD [Staff Physician] - - Patient Instructions Additional Instructions: You had a transvaginal ultrasound done while in the emergency department. The preliminary results shows that there is a single intrauterine gestation estimated at 25 weeks and 4 days. The estimated weight is 794 g. The presentation of your baby cephalic. There are no signs of placenta previa. Amniotic fluid volume is subjectively normal. The cardiac activity is documented at 148 bpm. It is important that you increase fluids daily. As per our discussion, he should follow-up with your education intern within 48 hours. Return back to the ER for severe/persistent or worsening symptoms or any concerns. - Post Discharge Activity
[2018-02-18 00:31] LABS: ALBUMIN 2.6 g/dl (3.4-5.0); ALK PHOS 74 U/L (45-117); ANION GAP 8 MMOL/L (8-16); BILIRUBIN,TOTAL 0.2 mg/dL (0.2-1); BLOOD UREA NITROGEN 9 mg/dL (7-18); CALCIUM 8.6 mg/dL (8.5-10.1); CHLORIDE 106 mmol/L (98-107); CO2 24 mmol/L (21-32); CREATININE 0.6 mg/dL (0.55-1.3); GLUCOSE,RANDOM 107 mg/dL (74-106); LIPASE 96 U/L (73-393); POTASSIUM 3.9 mmol/L (3.5-5.1); SGOT/AST 12 U/L (15-37); SGPT/ALT 15 U/L (13-61); SODIUM 137 mmol/L (136-145); TOT PROT 6.3 g/dl (6.4-8.2)
[2018-02-18 01:22] LABS: ACANTHOCYTES 0; ANISOCYTOSIS 0; HELMET CELLS 0; HOWELL-JOLLY BODIES 0; MACROCYTOSIS 0; OVALOCYTE 0; PLATELET ESTIMATE NORMAL; ROULEAU 0; SICKELED CELLS 0; TARGET CELLS 0; TEAR DROP CELLS 0; TOXIC GRANULATION 0
[2018-02-18 01:36] LABS: URINE APPEARANCE SLCLOUDY; URINE BILIRUBIN NEGATIVE (<2.0 mg/dL); URINE COLOR YELLOW; URINE GLUCOSE (UA) NEGATIVE (NEGATIVE); URINE KETONE NEGATIVE (NEGATIVE); URINE LEUK ESTERASE TRACE (NEGATIVE); URINE NITRITE NEGATIVE (NEGATIVE); URINE PROTEIN 1+ (NEGATIVE)
[2018-02-18 02:02] LABS: EPI CELLS MODERATE /HPF (FEW); URINE BACTERIA RARE /hpf (NONE SEEN); URINE HYALINE CAST 6 /lpf; URINE MUCUS RARE
== END 2018-02-18 02:11 | disposition home or self-care (01) ==
LOC: JERFT 22:39
DX: O26.892 Other specified pregnancy related conditions, second trimester (principal); R10.11 Right upper quadrant pain; O13.2 Gestational [pregnancy-induced] hypertension without significant proteinuria, second trimester; Z3A.25 25 weeks gestation of pregnancy; Z87.09 Personal history of other diseases of the respiratory system
CPT/HCPCS: 36415; 76705-TC; 76815-TC; 80053; 81003; 81015; 83690; 85025; 99281-25

== ENCOUNTER 2018-04-17 19:47 | Emergency (ER) | payer OTHER ==
[2018-04-17 19:51] VITALS: TEMP 97.7; BMI 37.1
--- NOTE | 2018-04-17 20:35 | PDOC ---
History of Present Illness - General Chief Complaint: Chest Pain Stated Complaint: CHEST PAIN Time Seen by Provider: 04/17/18 19:59 History Source: Patient Exam Limitations: No Limitations - History of Present Illness Beta Brenna Contraindications (Core Measure): Yes: Not Prescribed Past History - Past Medical History Allergies/Adverse Reactions: Allergies Allergy/AdvReac Type Severity Reaction Status Date / Time butorphanol tartrate Allergy Intermediate Itching Verified 04/17/18 19:51 [From Stadol] Home Medications: Ambulatory Orders Vit 93/Iron Fum/Folic [ Formula Tablet] 1 each PO DAILY Albuterol Sulfate [Proventil HFA Inhaler -] 1 - 2 inh IH PRN 10/25/17 Asthma: Yes Cancer: No Cardiac Disorders: No COPD: No Diabetes: No HTN: ( related) Seizures: No Thyroid Disease: No - Reproductive History (#): 3 Para: 1 Cervical CA: No Dysfunctional Uterine Bleeding: No Ectopic : No Endometrial CA: No Polycystic Ovaries: No Therapeutic (s) & number: No Tubal Ligation: No Spontaneous : 1 - Immunization History Immunization Up to Date: Yes - Suicide/Smoking/Psychosocial Hx Smoking Status: No Smoking History: Never smoked Have you smoked in the past 12 months: No Number of Cigarettes Smoked Daily: 0 Hx Alcohol Use: No Drug/Substance Use Hx: No Substance Use Type: None Hx Substance Use Treatment: No *Physical Exam - Vital Signs Last Vital Signs Temp Pulse Resp BP Pulse Ox 97.7 F 118 H 20 107/66 100 04/17/18 19:50 04/17/18 20:25 04/17/18 20:25 04/17/18 20:25 04/17/18 20:25 - Physical Exam General Appearance: No: Apparent Distress Respiratory/Chest: positive: Lungs Clear, Normal Breath Sounds. negative: Respiratory Distress Cardiovascular: positive: Regular Rhythm, S1, S2, Tachycardia. negative: Murmur Female Pelvic Exam: positive: other (Gravid uterus) Gastrointestinal/Abdominal: negative: Tender Extremity: negative: Pedal Edema, Swelling, Calf Tenderness Neurologic: positive: Fully Oriented, Alert, Normal Mood/Affect Moderate Sedation - Procedure Monitoring Vital Signs: Procedure Monitoring Vital Signs Temperature 97.7 F 04/17/18 19:50 Pulse Rate 118 H 04/17/18 20:25 Respiratory Rate 20 04/17/18 20:25 Blood Pressure 107/66 04/17/18 20:25 O2 Sat by Pulse Oximetry (%) 100 04/17/18 20:25 ED Treatment Course - LABORATORY CBC & Chemistry Diagram: 04/17/18 20:35 04/17/18 20:35 - ADDITIONAL ORDERS Additional order review: Laboratory Results 04/17/18 20:35 Sodium 139 Potassium 3.9 Chloride 107 Carbon Dioxide 24 Anion Gap 8 BUN 5 L Creatinine 0.5 L Creat Clearance w eGFR > 60 Random Glucose 81 Calcium 8.5 TSH 1.77 04/17/18 20:35 RBC 3.79 MCV 83.9 MCHC 35.0 RDW 13.4 MPV 10.4 Neutrophils % 71.7 Lymphocytes % 15.8 Monocytes % 10.5 H Eosinophils % 1.6 Basophils % 0.4 - RADIOLOGY Radiology Studies Ordered: Category Date Time Status DUPLEX VASCUL US-2LEGS [US] Stat Ultrasound 04/17/18 20:26 Completed Medical Decision Making - Medical Decision Making 33 y/o F currently around 34 weeks , hx of asthma presents with L sided CP that started around 10:30 AM today, intermittent in nature, associated with mild SOB. CP is not worsened or relieved by anything. Denies fever, URI sxs, cough, abdominal or pelvic pain, n/v, vaginal bleeding, urinary complaints. 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 Sri Grande 04/17/18 20:[address] Sri Grande, who is okay with preceding with CTA if necessary EKG shows sinus tachycardia at 105 bpm, no right heart strain pattern noted 04/17/18 21:03 Labs unremarkable Patient decides she does not want to do the CTA given the risks to baby Risks of not getting the CTA discussed with patient; patient understands. She ia A&Ox4 and has capacity to make her medical decisions. Patient signing out AMA Bedside ultrasound done showing heart rate of 148 bpm 04/17/18 23:23 *DC/Admit/Observation/Transfer Diagnosis at time of Disposition: Chest pain Qualifiers: Chest pain type: unspecified Qualified Code(s): R07.9 - Chest pain, unspecified - Discharge Dispostion Disposition: AGAINST MEDICAL ADVICE Condition at time of disposition: Stable Decision to Admit order: No - Referrals Referrals: Mya Hendrix MD [Primary Care Provider] - 3 days Sri Grande DO [Staff Physician] - 2 Days - Patient Instructions Printed Discharge Instructions: DI for Chest Pain Additional Instructions: Thank you for choosing [facility]. It was a pleasure taking care of you. You were seen here for chest pain There is concern your chest pain may be due to clot in your lungs (pulmonary embolism) for which we need to do CT chest to rule it out. Risks of not getting the study done include disability and possible . Return to the Emergency Department if your symptoms worsen or persist or have other concerning symptoms. - Post Discharge Activity
[2018-04-17 20:41] LABS: BASO % 0.4 % (0-2.0); EOS % 1.6 % (0-4.5); HEMATOCRIT 31.8 % (32.4-45.2); HEMOGLOBIN 11.1 GM/dL (10.7-15.3); LYMPH % 15.8 % (8-40); MCH 29.4 pg (25.7-33.7); MEAN CELL VOLUME 83.9 fl (80-96); MEAN PLT VOLUME 10.4 fl (7.5-11.1); MONO % 10.5 % (3.8-10.2); NEUT % 71.7 % (42.8-82.8); PLATELET COUNT 150 K/MM3 (134-434); RBC 3.79 M/mm3 (3.60-5.2); RDW 13.4 % (11.6-15.6); WHITE BLOOD COUNT 12.4 K/mm3 (4.0-10.0)
[2018-04-17 21:21] LABS: ANION GAP 8 MMOL/L (8-16); BLOOD UREA NITROGEN 5 mg/dL (7-18); CALCIUM 8.5 mg/dL (8.5-10.1); CHLORIDE 107 mmol/L (98-107); CO2 24 mmol/L (21-32); CREATININE 0.5 mg/dL (0.55-1.3); GLUCOSE,RANDOM 81 mg/dL (74-106); POTASSIUM 3.9 mmol/L (3.5-5.1); SODIUM 139 mmol/L (136-145)
[2018-04-17 22:16] LABS: PLATELET ESTIMATE ADEQUATE
[2018-04-17 23:41] VITALS: BP 105/55; PULSE 114
--- NOTE | 2018-04-18 09:16 | EKG ---
Test Reason : Blood Pressure : / mmHG Vent. Rate : 105 BPM Atrial Rate : 105 BPM P-R Int : 144 ms QRS Dur : 084 ms QT Int : 344 ms P-R-T Axes : 032 047 026 degrees QTc Int : 454 ms POOR DATA QUALITY, INTERPRETATION MAY BE ADVERSELY AFFECTED SINUS TACHYCARDIA CANNOT RULE OUT ANTERIOR INFARCT (CITED ON OR BEFORE 01-APR-2014) ABNORMAL ECG WHEN COMPARED WITH ECG OF 01-APR-2014 11:22, VENT. RATE HAS INCREASED BY 43 BPM T WAVE INVERSION NO LONGER EVIDENT IN ANTERIOR LEADS NONSPECIFIC T WAVE ABNORMALITY NOW EVIDENT IN LATERAL LEADS Confirmed by SUSHILA ALEXANDER, JUAN CARLOS ([id number]) on 04/18/2018 9:16:27 AM Referred By: Confirmed By:JUAN CARLOS CONTI MD
== END 2018-04-17 23:44 | disposition left against medical advice (07) ==
LOC: JER 19:47
DX: O26.893 Other specified pregnancy related conditions, third trimester (principal); R07.9 Chest pain, unspecified; O13.3 Gestational [pregnancy-induced] hypertension without significant proteinuria, third trimester; Z3A.34 34 weeks gestation of pregnancy
CPT/HCPCS: 36415; 80048; 84443; 85025; 93005; 93010; 93970-TC; 99283-25

== ENCOUNTER 2018-04-18 11:17 | Emergency (ER) | payer OTHER ==
[2018-04-18 11:34] VITALS: TEMP 98.1
--- NOTE | 2018-04-18 12:24 | PDOC ---
Attending Attestation - HPI HPI: 04/18/18 13:16 The patient is a 33 year old female(), 34 weeks with no significant PMH of who presents to the emergency department with chest pain for several days. The patient reports some associated shortness of breath and palpitation with her chest pain. She states that her chest pain is worsened with laying flat and relieved with sitting up or leaning forward. The patient reports that she was seen in the ED 1 day ago for similar complaint. She states that she was sent in by her OB for a CTA but she decided not to get it yesterday. The patient denies any recent/long travel. She denies any other symptoms. She denies any fever, chills, nausea, vomiting, diarrhea, constipation or urinary symptoms. She denies any headache or dizziness. The patient denies any other complaints. Documentation prepared by Les Dean, acting as medical doctor nuclear medicine for Brooke Hammonds MD. <Les Dean - Last Filed: 04/18/18 13:16> - Resident Resident Name: Michael Schuster - ED Attending Attestation I have performed the following: I have examined & evaluated the patient, The case was reviewed & discussed with the resident, I agree w/resident's findings & plan, Exceptions are as noted - Physicial Exam PE: 04/18/18 14:30 Constitutional: Well-developed, well-nourished female in no acute distress or obvious discomfort. Found sitting upright on hospital hallway bed. Alert and oriented x4. Neck: Supple, No JVD Cardiovascular: Tachycardic rate and regular rhythm. No murmur, rubs, clicks, or gallops. Respiratory: Breathing unlabored. Equal chest rise and fall. Clear to auscultation bilaterally. Gastrointestinal: Gravid abdomen. Neuro: Alert and oriented. Moving all four extremities spontaneously. Gait normal. Skin: Warm, dry, and intact. - Medical Decision Making 04/18/18 14:31 EKG - NSR rate of 98 bpm, axis nml, intervals nml, no st elevation or depression 04/18/18 14:42 Laboratory Tests 04/18/18 04/18/18 13:28 13:28 WBC 10.7 H Hgb 11.0 Hct 34.2 Plt Count 134 BUN 6 L Creatinine 0.4 L Creatine Kinase 70 Troponin I < 0.02 04/18/18 16:02 CTA negative Will discharge to home <Brooke Hammonds - Last Filed: 04/19/18 11:13>
--- NOTE | 2018-04-18 12:32 | PDOC ---
History of Present Illness - General Chief Complaint: Chest Pain Stated Complaint: REVISIT,CHEST PAIN Time Seen by Provider: 04/18/18 12:05 History Source: Patient, Old Records Exam Limitations: No Limitations - History of Present Illness Initial Comments: HPI: 33 y/o female presenting to [facility] ER complaining of shortness of breath, palpitations, and chest pain for the past two days. It feels like when youve been running and then stop. Pt states pain is in the center of her chest without radiation. It is made worse by inspiration, leaning backwards, and laying flat. Pain is improved by leaning forward. Denies swelling in her legs, long periods of immobilization, or recent cancer diagnosis. Denies personal or familial history of blood clots or bleeding disorders. Pt is 34 weeks by U/S. care by Dr. Sri Grande. Reports a history of hypertension managed with with Lisinopril but this was discontinued by OB. Pt was evaluated at this department last evening for similar symptoms. Lower extremity vascular U/S was unremarkable for signs of DVT. Pt declined to have a CTA performed. Became concerned when symptoms returned and woke pt from sleep around 04:00 this morning. Pt called and discussed symptoms again with Dr. Grande, who urged the pt to return to the ED to have the CTA performed. OB History: ,0,0,2 Medical Hx: - Asthma, PRN Albuterol, not used in past week Surgical Hx: - Pt denies past surgical history. Past History - Past Medical History Allergies/Adverse Reactions: Allergies Allergy/AdvReac Type Severity Reaction Status Date / Time butorphanol tartrate Allergy Intermediate Itching Verified 04/17/18 19:51 [From Stadol] Home Medications: Ambulatory Orders Vit 93/Iron Fum/Folic [ Formula Tablet] 1 each PO DAILY Asthma: Yes Cancer: No Cardiac Disorders: No COPD: No Diabetes: No HTN: ( related) Seizures: No Thyroid Disease: No - Reproductive History (#): 3 Para: 1 Cervical CA: No Dysfunctional Uterine Bleeding: No Ectopic : No Endometrial CA: No Polycystic Ovaries: No Therapeutic (s) & number: No Tubal Ligation: No Spontaneous : 1 - Immunization History Immunization Up to Date: Yes - Suicide/Smoking/Psychosocial Hx Smoking Status: No Smoking History: Never smoked Have you smoked in the past 12 months: No Number of Cigarettes Smoked Daily: 0 Hx Alcohol Use: No Drug/Substance Use Hx: No Substance Use Type: None Hx Substance Use Treatment: No Review of Systems - Review of Systems Able to Perform ROS?: Yes Comments:: In addition to that documented in the HPI above, the additional ROS was obtained : Constitutional: Denies fevers or chills or recent illness Eyes: Denies vision changes ENMT: Denies sore throat or trouble swallowing CV: Per PHI Resp: Per HPI GI: Denies vomiting or diarrhea : Denies painful urination MSK: Denies recent trauma Skin: Denies new rashes Neuro: Denies new numbness or tingling or weakness Endocrine: Denies polyuria Heme: Denies bleeding or bruising *Physical Exam - Vital Signs Last Vital Signs Temp Pulse Resp BP Pulse Ox 98.1 F 112 H 20 108/69 98 04/18/18 11:32 04/18/18 11:32 04/18/18 11:32 04/18/18 11:32 04/18/18 11:32 - Physical Exam Comments: Constitutional: Well-developed, well-nourished female in no acute distress or obvious discomfort. Found sitting upright on hospital hallway bed. Alert and oriented x4. Answered all questions appropriately and completely. Speech was non -labored, non-pressured. Head: Normocephalic. No obvious external signs of trauma. Eyes: Sclerae white. EARS: Hearing grossly intact. NOSE: No nasal discharge. Neck: Supple, trachea is midline. Cardiovascular: Tachycardic rate and regular rhythm. No murmur, rubs, clicks, or gallops. Peripheral pulses: Radial pulses full. No pretibial edema. Respiratory: Breathing unlabored. Equal chest rise and fall. Clear to auscultation bilaterally. No stridor, no wheezing, no rhonchi. Able to speak in complete sentences and speak while walking without pausing or appearing in distress. Gastrointestinal: Gravid abdomen. Neuro: Alert and oriented. Moving all four extremities spontaneously. Gait normal. Skin: Warm, dry, and intact. Psych: Affect: appropriate. Mood: normal. Moderate Sedation - Procedure Monitoring Vital Signs: Procedure Monitoring Vital Signs Temperature 98.1 F 04/18/18 11:32 Pulse Rate 112 H 04/18/18 11:32 Respiratory Rate 20 04/18/18 11:32 Blood Pressure 108/69 04/18/18 11:32 O2 Sat by Pulse Oximetry (%) 98 04/18/18 11:32 ED Treatment Course - LABORATORY CBC & Chemistry Diagram: 04/18/18 13:28 04/18/18 13:28 Medical Decision Making - Medical Decision Making *Reviewed vital signs, nursing notes, and prior visit documentation (if available). 33 y/o female bounceback with episodes of SOB, pleuritic chest pain, and palpitations. Chest pain improves with leaning forward. Afebrile. Vitals remarkable for tachycardia and borderline tachypnea. Low suspicion for PE given unremarkable venous duplex yesterday and positional component of pain. Suspect pericarditis, myocarditis, cardiomyopathy, or physiologic changes secondary to . Will obtain EKG, CBC, CMP, Cardiac Profile, BNP, and CTA to further evaluate. EKG: Sinus rhythm with a ventricular rate of 98 bpm. Normal axis. Normal intervals. No ST segment elevation or depression. No hyperacute T waves. No pathologic Q waves. Spent approx. 25 minutes at four different time points discussing risks and benefits of CTA in wit pt, pts father, and pts . Pt expressed verbal understanding and agreement with plan. 12:[address] Vasquez of radiology. Discussed HPI, current ED workup, and plan of management. Will obtain CTA. CTA unremarkable for evidence of PE. CBC unremarkable for anemia. CMP unremarkable for electrolyte derangement. BNP not elevated. Low suspicion for cardiomyopathy. 16:[address] Grande. Verbally appraised of the pts HPI, ED course, and current plan of management. Will evaluate the pt as outpatient in clinic on Saturday at 11:30. Administered Acetaminophen for symptom relief. Suspect symptoms are likely secondary to physiologic changes of . Pt to follow up with OBGYN. Discussed imaging and laboratory results with pt. Answered all questions. Provided return precautions. Pt expressed verbal understanding and agreement with plan to discharge home with outpatient follow up. *DC/Admit/Observation/Transfer Diagnosis at time of Disposition: Shortness of breath due to in third trimester - Discharge Dispostion Disposition: HOME Condition at time of disposition: Good Decision to Admit order: No - Referrals Referrals: Mya Hendrix MD [Primary Care Provider] - Sri Grande DO [Staff Physician] - - Patient Instructions Printed Discharge Instructions: DI for Shortness of Breath Additional Instructions: You were seen today for chest pain and shortness of breath. Your CT did not show signs of a pulmonary embolism. Your labs were normal and did not show signs of heart problems. You should follow up with Dr. Grande. She has scheduled an appointment for you this coming Saturday (04/21/2018) at 11:30 AM. Call the office if you are not able to make the appointment. You can take over the counter Tylenol as needed for pain. Take as directed on the package insert. Do not exceed the recommended dosage. Go to the nearest emergency department if your condition worsens or you feel like you need additional emergency evaluation. Print Language: PRYDEINIG - Post Discharge Activity
[2018-04-18 13:42] LABS: BASO % 0.3 % (0-2.0); EOS % 1.8 % (0-4.5); HEMATOCRIT 34.2 % (32.4-45.2); LYMPH % 19.2 % (8-40); MCH 27.6 pg (25.7-33.7); MCHC 32.1 g/dl (32.0-36.0); MEAN PLT VOLUME 10.7 fl (7.5-11.1); MONO % 8.3 % (3.8-10.2); NEUT % 70.4 % (42.8-82.8); PLATELET COUNT 134 K/MM3 (134-434); RBC 3.98 M/mm3 (3.60-5.2); RDW 14.1 % (11.6-15.6); WHITE BLOOD COUNT 10.7 K/mm3 (4.0-10.0)
[2018-04-18 13:52] VITALS: BP 119/69; PULSE 105
[2018-04-18 14:16] LABS: ALBUMIN 2.5 g/dl (3.4-5.0); ALK PHOS 130 U/L (45-117); ANION GAP 9 MMOL/L (8-16); BILIRUBIN,TOTAL 0.3 mg/dL (0.2-1); BLOOD UREA NITROGEN 6 mg/dL (7-18); CALCIUM 8.7 mg/dL (8.5-10.1); CHLORIDE 107 mmol/L (98-107); CO2 20 mmol/L (21-32); CREATININE 0.4 mg/dL (0.55-1.3); GLUCOSE,RANDOM 76 mg/dL (74-106); POTASSIUM 3.9 mmol/L (3.5-5.1); SGOT/AST 14 U/L (15-37); SGPT/ALT 13 U/L (13-61); SODIUM 135 mmol/L (136-145)
[2018-04-18] MEDS ORDERED: ACETAMINOPHEN 500 MG TABLET (FP) PO ONE (15:51)
[2018-04-18] MEDS ORDERED: ACETAMINOPHEN 325 MG TABLET (FP) ONE (16:02)
--- NOTE | 2018-04-18 18:22 | EKG ---
Test Reason : Blood Pressure : / mmHG Vent. Rate : 098 BPM Atrial Rate : 098 BPM P-R Int : 142 ms QRS Dur : 084 ms QT Int : 350 ms P-R-T Axes : 027 052 037 degrees QTc Int : 446 ms NORMAL SINUS RHYTHM CANNOT RULE OUT ANTERIOR INFARCT (CITED ON OR BEFORE 01-APR-2014) ABNORMAL ECG WHEN COMPARED WITH ECG OF 17-APR-2018 20:53, NO SIGNIFICANT CHANGE WAS FOUND Confirmed by LOLITA DELAROSA MD ([id number]) on 04/18/2018 6:22:00 PM Referred By: Confirmed By:LOLITA DELAROSA MD
== END 2018-04-18 16:37 | disposition home or self-care (01) ==
LOC: JER 11:17
DX: O26.893 Other specified pregnancy related conditions, third trimester (principal); O99.513 Diseases of the respiratory system complicating pregnancy, third trimester; J45.909 Unspecified asthma, uncomplicated; O13.3 Gestational [pregnancy-induced] hypertension without significant proteinuria, third trimester; Z3A.34 34 weeks gestation of pregnancy
CPT/HCPCS: 36415; 71275-TC; 80053; 82550; 83880; 84484; 85025; 93005; 93010; 99282-25

== ENCOUNTER 2018-05-27 16:50 | Inpatient (IN) | payer OTHER ==
[2018-05-27] MEDS ORDERED: PROMETHAZINE HCL 25 MG/1 ML VIAL IVPUSH ONE (17:56)
[2018-05-27] MEDS ORDERED: BUTORPHANOL TARTRATE 1 MG/ML VIAL IVPB ONE (17:56)
[2018-05-27 17:58] VITALS: BMI 38.9
[2018-05-27] MEDS ORDERED: DINOPROSTONE 10 MG VAGINAL SUPPOSITORY VG ONE (17:58)
--- NOTE | 2018-05-27 18:08 | HP ---
Past Medical History - Primary Care Physician PCP:: Sri Grande - Admission Chief Complaint: Obesity. Hx of macrosomia History of Present Illness: 33 yo EDC 05/31/18 EGA 39 weeks hx of macrosomia last , Pericarditis and obesity +AFM No rom bleeding or pain pt admitted for induction History Source: Patient Limitations to Obtaining History: No Limitations - Past Medical History ...: 4 ...Para: 2 ...Term: 2 ...: 0 ...Spon : 0 ...Induced : 1 ...Multiple Gestation: 0 ...EDC by Sono: 05/31/18 - Past Surgical History Past Surgical History: Yes: None Hx Myomectomy: No Hx Transabdominal Cerclage: No - Smoking History Smoking history: Never smoked Have you smoked in the past 12 months: No Aproximately how many cigarettes per day: 0 - Alcohol/Substance Use Hx Alcohol Use: No History of Substance Use: reports: None - Social History History of Recent Travel: No Home Medications - Allergies Allergies/Adverse Reactions: Allergies Allergy/AdvReac Type Severity Reaction Status Date / Time butorphanol tartrate Allergy Intermediate Itching Verified 05/18/18 15:34 [From Stadol] - Home Medications Home Medications: Ambulatory Orders Vit 93/Iron Fum/Folic [ Formula Tablet] 1 each PO DAILY Albuterol Sulfate Inhaler - [Ventolin Hfa Inhaler -] 2 inh PO Q4H PRN 05/27/18 Dextromethorphan Hb/Doxylamine [Vicks Nyquil Cough Liquid] 236 ml PO ONCE Fluticasone Propionate [Flovent Diskus] 250 mcg IH DAILY 05/27/18 Physical Exam - Maternity Vital Signs: Vital Signs Temperature 98.2 F 05/27/18 16:50 Pulse Rate 106 H 05/27/18 16:50 Respiratory Rate 20 05/27/18 16:50 Blood Pressure 129/69 05/27/18 16:50 O2 Sat by Pulse Oximetry (%) Constitutional: Yes: Well Nourished, No Distress Cardiovascular: Yes: WNL Lungs: Clear to auscultation Breast(s): Yes: WNL - Abdominal Exam/OB Fundal Height: 41 Number of Fetuses: Single Presentation: Vertex Contractions: No Category: I Accelerations: None - Vaginal Exam/OB Dilatation (cm): closed Effacement (%): long Amniotic Membrane Status: Intact Presentation: Vertex/Position Station: -4 - Physical Exam Musculoskeletal: Yes: WNL Extremities: Yes: WNL Edema: No Integumentary: Yes: WNL Psychiatric: Yes: WNL, Alert, Oriented Hemorrhage Risk Assessment - Risk Factors Risk Score: 0 Risk Level: Low Risk Problem List - Problems (1) Obesity affecting in third trimester Code(s): O99.213 - OBESITY COMPLICATING , THIRD TRIMESTER (2) Size of fetus inconsistent with dates in third trimester Code(s): O26.843 - UTERINE SIZE-DATE DISCREPANCY, THIRD TRIMESTER Assessment/Plan Obesity pericarditis Hx of macrosomia IUP at 39.3 week Plan cervidil
[2018-05-27] MEDS ORDERED: TUBERCULIN PPD 5 TU/0.1ML SYRINGE (IN PATIENT USE ONLY) ID ONE (18:45)
[2018-05-27 19:17] LABS: BASO % 0.1 % (0-2.0); EOS % 0.9 % (0-4.5); HEMATOCRIT 32.7 % (32.4-45.2); LYMPH % 14.4 % (8-40); MCH 27.7 pg (25.7-33.7); MCHC 33.6 g/dl (32.0-36.0); MEAN CELL VOLUME 82.2 fl (80-96); MEAN PLT VOLUME 9.7 fl (7.5-11.1); MONO % 7.7 % (3.8-10.2); NEUT % 76.9 % (42.8-82.8); PLATELET COUNT 139 K/MM3 (134-434); RBC 3.98 M/mm3 (3.60-5.2); RDW 15.2 % (11.6-15.6); WHITE BLOOD COUNT 12.8 K/mm3 (4.0-10.0)
[2018-05-27 19:31] LABS: INR 0.97 (0.83-1.09); PROTHROMBIN TIME (PATIENT) 11.5 SEC (9.7-13.0)
[2018-05-27 19:33] LABS: ACTIVATED PTT 28.3 SECONDS (25.2-36.5)
[2018-05-27 19:45] LABS: ANION GAP 9 MMOL/L (8-16); BLOOD UREA NITROGEN 5 mg/dL (7-18); CALCIUM 8.8 mg/dL (8.5-10.1); CHLORIDE 108 mmol/L (98-107); CO2 23 mmol/L (21-32); CREATININE 0.4 mg/dL (0.55-1.3); GLUCOSE,RANDOM 75 mg/dL (74-106); POTASSIUM 4.2 mmol/L (3.5-5.1); SODIUM 140 mmol/L (136-145)
--- NOTE | 2018-05-27 19:45 | PN ---
Progress Note (short form) - Note Progress Note: 33 yrs 39 weeks for induction of labor as per Dr Coy I inserted Cervidil at 5.55 PM cx 1 cm, post, 50 %, Mi , vx -3 UC irregular , mild FHR 145 cat-1 Selected Entries 05/27/18 16:50 Temperature 98.2 F Pulse Rate 106 H Blood Pressure 129/69
[2018-05-28 01:52] LABS: RPR NONREACTIVE (NONREACTIVE)
[2018-05-28] MEDS ORDERED: METHYLERGONOVINE MALEATE 0.2 MG/1 ML AMP IM ONE (06:07)
[2018-05-28] MEDS ORDERED: FENTANYL/BUPIVACAINE/NS/PF - PCEA - 50 ML DISP.SYRIN EP ONE ×3 (07:54→16:33)
[2018-05-28] MEDS: ELECTROLYTE-148 SOLN 1,000 ML IV SCH ×2 (08:17→09:25)
[2018-05-28] MEDS ORDERED: LIDO 2%/EPI 1:200000 PRESRVFRE (20 ML SDVIAL) ONE (08:30)
[2018-05-28] MEDS ORDERED: BUPIVACAINE HCL/PF 0.25% (2.5MG/ML) 10 ML VIAL ONE ×2 (08:30→15:30)
--- NOTE | 2018-05-28 08:43 | PN ---
Ante-Partal Exam - Subjective Subjective: Pt getting epidural Vital Signs: Vital Signs Temperature 97.9 F 05/28/18 08:00 Pulse Rate 119 H 05/28/18 08:00 Respiratory Rate 20 05/28/18 08:00 Blood Pressure 123/76 05/28/18 08:00 O2 Sat by Pulse Oximetry (%) Bleeding: No Headache: No Visual changes: No Right upper quadrant pain: No - Contractions Contractions: Yes Regularity: Regular Intensity: Moderate Monitor Mode: External - Exam during Labor Variability: Moderate Heart Rate Location: [facility] Category: I Monitor Accelerations: Present Monitor Decelerations: None Exam: Vaginal Dilatation (cm): 1 cm Amniotic Membrane Status: Intact Presentation: Vertex - Intrapartum Hemorrhage Risk Risk Score: 0 Risk Level: Low Risk - Assessment/Plan Assessment/Plan: Epidural Cervidil induction P2 Plan Pitocin aug if needs
[2018-05-28] MEDS: FENTANYL/BUPIVACAINE/NS/PF - PCEA - 50 ML DISP.SYRIN EP SCH ×3 (08:45→16:45)
--- NOTE | 2018-05-28 09:13 | PN ---
Ante-Partal Exam - Subjective Subjective: Pt comfortable s/p epidural. Vital Signs: Vital Signs Temperature 97.9 F 05/28/18 08:00 Pulse Rate 119 H 05/28/18 08:00 Respiratory Rate 20 05/28/18 08:00 Blood Pressure 123/76 05/28/18 08:00 O2 Sat by Pulse Oximetry (%) Bleeding: No Headache: No Visual changes: No Right upper quadrant pain: No Pain (scale 1-10): 1 - Contractions Contractions: Yes Regularity: Regular Intensity: Mild/Mod - Exam during Labor Category: I Monitor Accelerations: Present Monitor Decelerations: None Exam: Vaginal Dilatation (cm): 2.5 Effacement (%): 50 Amniotic Membrane Status: Intact Nitrazine Test: Positive Presentation: Vertex Station: -2 - Assessment/Plan Assessment/Plan: elective IOL s/p cervidil to start pitocin cat 1 tracing
[2018-05-28] MEDS ORDERED: NALOXONE HCL 0.4 MG/ML VIAL IVPUSH PRN (09:14)
[2018-05-28] MEDS ORDERED: OXYTOCIN 30 UNITS in 0.9% NS 30 UNIT/500 ML INFUS.BAG IVPB SCH (09:15)
[2018-05-28] MEDS ORDERED: OXYTOCIN 30 UNITS in 0.9% NS 30 UNIT/500 ML INFUS.BAG IVPB ONE (09:34)
[2018-05-28] MEDS ORDERED: SODIUM CHLORIDE 100 ML IVPB ONE ×2 (09:35→12:54)
[2018-05-28] MEDS ORDERED: AMPICILLIN SODIUM 2 GM VIAL ONE (09:35)
[2018-05-28] MEDS ORDERED: AMPICILLIN - 2 GM in SODIUM CHLORIDE 100 ML IVPB ONE (10:05)
[2018-05-28] MEDS ORDERED: AMPICILLIN SODIUM 1 GM VIAL ONE (12:54)
[2018-05-28] MEDS: AMPICILLIN - 1 GM in SODIUM CHLORIDE 100 ML IVPB SCH (13:53)
[2018-05-28] MEDS ORDERED: LIDOCAINE HCL/PF 2% SDV 5ML VIAL ONE (15:53)
[2018-05-28] MEDS ORDERED: OXYTOCIN 20 UNITS in 0.9% NS 20 UNIT/1,000 ML INFUS.BAG IV ONE (17:37)
[2018-05-28] MEDS ORDERED: MISOPROSTOL 200 MCG TABLET NR ONE (18:15)
--- NOTE | 2018-05-28 18:22 | PN ---
Delivery - Delivery Vaginal Delivery: No Problems Episiotomy/Laceration: None EBL (cc): 500 Delivery, Single - Stages of Labor Date of Delivery: 05/28/18 Time of Delivery: 17:59 Date Placenta Delivered: 05/28/18 Time Placenta Delivered: 18:05 Placenta: Yes: Spontaneous - Condition of Manager Program Management/Plant And Equipment Worker Present: No Gender: Female Position: Left, OA - 1 Minute Total Score: 9 5 Minutes Total Score: 10 - Feeding Plan Initial Plan: Elected not to breastfeed exclusively throughout hospitalization Remarks - Remarks Remarks: across intact perineum from AMBER position anterior (right)and posterior shoulders delivered with ease along with remainder of placenta delivered with 3VC and in tact after delivery of placenta uterine atony noted, PPH with total EBL 500cc 1 dose methergine 0.2mg IM given and and 1000mcg of cytotec IA given after delivery mom stable, bleeding WNL after interventions sponge count correct baby to well baby nursery
[2018-05-28] MEDS ORDERED: BISACODYL 10 MG SUPP.RECT RC PRN (18:23)
[2018-05-28] MEDS ORDERED: METHYLERGONOVINE MALEATE 0.2 MG/1 ML AMP IM PRN ×2 (18:23→19:46)
[2018-05-28] MEDS ORDERED: WITCH HAZEL 50% (TUCKS) 40 PAD/JAR PAD TP PRN ×2 (18:23→19:46)
[2018-05-28] MEDS ORDERED: BENZOCAINE 20% 57 GM BOTTLE TP PRN (18:23)
[2018-05-28] MEDS ORDERED: BENZOCAINE 28 GM HEMORRHOIDAL OINTMENT TP PRN (18:23)
[2018-05-28] MEDS: IBUPROFEN 600 MG TABLET (FP) PO PRN ×2 (18:30→22:15)
[2018-05-28] MEDS: ACETAMINOPHEN 325 MG TABLET (FP) PO PRN ×2 (18:30→22:15)
[2018-05-28] MEDS ORDERED: MISOPROSTOL 200 MCG TABLET NR SCH (22:00)
[2018-05-29] MEDS: ACETAMINOPHEN 325 MG TABLET (FP) PO PRN ×6 (02:11→21:20)
[2018-05-29] MEDS: IBUPROFEN 600 MG TABLET (FP) PO PRN ×6 (02:12→21:20)
[2018-05-29 07:27] LABS: BASO % 0.1 % (0-2.0); EOS % 0.3 % (0-4.5); HEMATOCRIT 26.1 % (32.4-45.2); HEMOGLOBIN 8.7 GM/dL (10.7-15.3); LYMPH % 13.4 % (8-40); MCH 27.1 pg (25.7-33.7); MCHC 33.1 g/dl (32.0-36.0); MEAN CELL VOLUME 81.7 fl (80-96); MEAN PLT VOLUME 9.7 fl (7.5-11.1); MONO % 7.6 % (3.8-10.2); NEUT % 78.6 % (42.8-82.8); PLATELET COUNT 128 K/MM3 (134-434); RDW 15.3 % (11.6-15.6); WHITE BLOOD COUNT 13.1 K/mm3 (4.0-10.0)
[2018-05-29] MEDS: FERROUS SO4 325 MG TABLET (FP) PO SCH ×3 (08:57→17:21)
[2018-05-29] MEDS ORDERED: DIPHTH,PERTUSS(ACELL),TET 0.5 ML DISP.SYRIN IM ONE (10:00)
--- NOTE | 2018-05-29 11:34 | PN ---
Post Note - Post Date of Delivery: 05/28/18 Post Day: 1 Vital Signs: Vital Signs - 24 hr 05/28/18 05/28/18 05/28/18 11:45 12:00 12:15 Temperature 99.5 F Pulse Rate 109 H 112 H 115 H Respiratory 20 20 20 Rate Blood Pressure 115/62 114/65 114/56 L O2 Sat by Pulse 97 99 100 Oximetry (%) 05/28/18 05/28/18 05/28/18 12:30 12:45 12:55 Temperature Pulse Rate 114 H 110 H Respiratory 20 20 20 Rate Blood Pressure 115/66 117/60 O2 Sat by Pulse 91 L 100 Oximetry (%) 05/28/18 05/28/18 05/28/18 13:00 13:15 13:30 Temperature Pulse Rate 113 H 116 H 118 H Respiratory 20 20 20 Rate Blood Pressure 71/42 L 89/60 L 113/65 O2 Sat by Pulse 100 100 98 Oximetry (%) 05/28/18 05/28/18 05/28/18 13:38 13:45 14:00 Temperature 98.1 F Pulse Rate 117 H 111 H Respiratory 20 20 Rate Blood Pressure 115/58 L 102/52 L O2 Sat by Pulse 100 100 Oximetry (%) 05/28/18 05/28/18 05/28/18 14:15 14:30 14:45 Temperature Pulse Rate 116 H 114 H 115 H Respiratory 20 20 20 Rate Blood Pressure 118/63 112/60 116/61 O2 Sat by Pulse 100 100 96 Oximetry (%) 05/28/18 05/28/18 05/28/18 14:48 15:00 15:15 Temperature 98.8 F Pulse Rate 106 H 110 H Respiratory 20 22 H Rate Blood Pressure 101/59 L 110/57 L O2 Sat by Pulse 100 100 Oximetry (%) 05/28/18 05/28/18 05/28/18 15:30 15:45 16:00 Temperature Pulse Rate 121 H 115 H 121 H Respiratory 24 H 22 H 24 H Rate Blood Pressure 105/59 L 119/61 116/64 O2 Sat by Pulse 100 96 95 Oximetry (%) 05/28/18 05/28/18 05/28/18 16:15 16:45 18:15 Temperature Pulse Rate 117 H 137 H Respiratory 24 H 24 H 20 Rate Blood Pressure 117/66 96/64 O2 Sat by Pulse 99 100 Oximetry (%) 05/28/18 05/28/18 05/28/18 18:30 18:45 19:00 Temperature 98.8 F Pulse Rate 124 H 113 H 114 H Respiratory 20 20 20 Rate Blood Pressure 109/59 L 109/69 108/66 O2 Sat by Pulse 99 99 Oximetry (%) 05/28/18 05/28/18 05/29/18 19:56 20:49 02:00 Temperature 98.8 F 98.5 F 98.0 F Pulse Rate 114 H 117 H 117 H Respiratory 20 20 20 Rate Blood Pressure 108/66 124/75 120/76 O2 Sat by Pulse 99 Oximetry (%) 05/29/18 05/29/18 05:02 09:00 Temperature 97.5 F L 98.0 F Pulse Rate 106 H 108 H Respiratory 20 20 Rate Blood Pressure 120/74 113/56 L O2 Sat by Pulse Oximetry (%) Labs: Laboratory Results - last 24 hr 05/29/18 06:07 WBC 13.1 H RBC 3.20 L Hgb 8.7 L Hct 26.1 L D MCV 81.7 MCH 27.1 MCHC 33.1 RDW 15.3 Plt Count 128 L MPV 9.7 Absolute Neuts (auto) 10.3 H Neutrophils % 78.6 Lymphocytes % 13.4 Monocytes % 7.6 Eosinophils % 0.3 Basophils % 0.1 Nucleated RBC % 0 - Subjective Subjective: No Complaints - Objective Breast: Not engorged Abdomen: Soft, Non-tender Uterus: Fundus firm Vagina: Scant lochia Extremities: Non-tender - Assessment/Plan (1) Obesity affecting in third trimester Assessment: S/P Normal Plan: Routine Care
[2018-05-29] MEDS ORDERED: SENNOSIDES/DOCUSATE COMBO (SENNA PLUS) TABLET (UD) PO PRN (22:00)
[2018-05-29] MEDS: OXYTOCIN 20 UNITS in 0.9% NS 20 UNIT/1,000 ML INFUS.BAG IV SCH (23:56)
[2018-05-30 00:01] VITALS: PULSE 99
[2018-05-30] MEDS: AMPICILLIN - 1 GM in SODIUM CHLORIDE 100 ML IVPB SCH (00:36)
[2018-05-30] MEDS: ELECTROLYTE-148 SOLN 1,000 ML IV SCH (00:37)
[2018-05-30] MEDS: ACETAMINOPHEN 325 MG TABLET (FP) PO PRN ×2 (03:25→08:11)
[2018-05-30] MEDS: IBUPROFEN 600 MG TABLET (FP) PO PRN ×2 (03:25→08:09)
[2018-05-30] MEDS: FERROUS SO4 325 MG TABLET (FP) PO SCH ×2 (08:12→12:33)
--- NOTE | 2018-05-30 09:03 | DS ---
Physical Exam-ROUGH CARPENTER Vital Signs: Vital Signs Temperature 97.7 F 05/29/18 22:00 Pulse Rate 99 H 05/29/18 22:00 Respiratory Rate 18 05/29/18 22:00 Blood Pressure 107/56 L 05/29/18 22:00 O2 Sat by Pulse Oximetry (%) 99 05/28/18 19:56 Labs: CBC, BMP 05/29/18 06:07 05/27/18 18:00 Delivery - Delivery Vaginal Delivery: No Problems Type of Anesthesia: Epidural Episiotomy/Laceration: None EBL (cc): 500 Delivery, Single - Stages of Labor Date 1st Stage Initiatied: 05/28/18 Time 1st Stage Initiated: 06:00 Date 2nd Stage Initiated: 05/28/18 Time 2nd Stage Initiated: 17:50 Date of Delivery: 05/28/18 Time of Delivery: 17:59 Time Placenta Delivered: 18:05 Placenta: Yes: Spontaneous - Condition of Infant Sound Effects Person/Strategies Analyst Present: No Infant Gender: Female Weight: 7 lb 4 oz Position: Left, OA Total Hours ROM (Hrs/Mins): 4/36 - 1 Minute Total Score: 9 5 Minutes Total Score: 10 - [place] Feeding Plan Initial Plan: Elected not to breastfeed exclusively throughout hospitalization Discharge Summary Reason For Visit: INDUCTION OF LABOR Current Active Problems Obesity affecting in third trimester (Acute) Size of fetus inconsistent with dates in third trimester (Acute) - Instructions - Home Medications Comprehensive Discharge Medication List: Ambulatory Orders Vit 93/Iron Fum/Folic [ Formula Tablet] 1 each PO DAILY Albuterol Sulfate Inhaler - [Ventolin Hfa Inhaler -] 2 inh PO Q4H PRN 05/27/18 Dextromethorphan Hb/Doxylamine [Vicks Nyquil Cough Liquid] 236 ml PO ONCE Fluticasone Propionate [Flovent Diskus] 250 mcg IH DAILY 05/27/18
[2018-05-30 13:03] VITALS: BP 117/68; TEMP 97.6
== END 2018-05-30 13:10 | disposition home or self-care (01) | DRG 560 ==
LOC: JLDR 16:50 → J3W 05-28 20:41
PROVIDERS: ADMIT Obstetrics & Gynecology; ATTEND Obstetrics & Gynecology
PROC: 3E0P7VZ Introduction of Hormone into Female Reproductive, Via Natural or Artificial Opening (ICD-10-PCS; 2018-05-27)
PROC: 10E0XZZ Delivery of Products of Conception, External Approach (ICD-10-PCS; principal; 2018-05-28)
DX: O99.213 Obesity complicating pregnancy, third trimester (principal); E66.9 Obesity, unspecified; O72.1 Other immediate postpartum hemorrhage; O26.843 Uterine size-date discrepancy, third trimester; Z3A.39 39 weeks gestation of pregnancy; Z37.0 Single live birth
CPT/HCPCS: 36415; 59409; 80048; 85025; 85610; 85730; 86593; 86850; 86900; 86901; 87389; 90715; 94010

== ENCOUNTER 2018-07-17 04:57 | Day surgery (SDC) | payer OTHER ==
[2018-07-15 13:47] VITALS: BMI 35.4
[2018-07-17] MEDS ORDERED: MIDAZOLAM HCL 2 MG/2 ML SINGLE DOSE VIAL ONE (07:23)
[2018-07-17] MEDS ORDERED: ROCURONIUM BROMIDE 50 MG/5 ML VIAL ONE ×4 (07:26)
[2018-07-17] MEDS ORDERED: SUCCINYLCHOLINE CHLORIDE 200 MG/10 ML VIAL ONE ×2 (07:26)
[2018-07-17] MEDS ORDERED: KETOROLAC TROMETHAMINE 30 MG/1 ML VIAL ONE (07:26)
[2018-07-17] MEDS ORDERED: PROPOFOL 20 ML ONE ×10 (07:26→08:38)
[2018-07-17] MEDS ORDERED: DEXAMETHASONE SOD PHOSPHATE 4 MG/1 ML VIAL ONE (07:26)
[2018-07-17] MEDS ORDERED: LIDOCAINE HCL/PF 2% SDV 5ML VIAL ONE (07:26)
[2018-07-17] MEDS ORDERED: NEOSTIGMINE METHYLSULFATE 0.5 MG/ML - 10 ML MDV ONE (07:31)
[2018-07-17] MEDS ORDERED: GLYCOPYRROLATE 0.2 MG/1 ML VIAL ONE (07:32)
[2018-07-17] MEDS ORDERED: ONDANSETRON 4 MG/2 ML VIAL IVPUSH PRN (07:49)
--- NOTE | 2018-07-17 07:58 | HP ---
History & Physical Update - History History: No Change - Physical Physical: No Change - Assessment Assessment: No Change - Plan Plan: No Change (no changes since 07/15/18)
[2018-07-17] MEDS ORDERED: LACTATED RINGERS SOLUTION 1,000 ML IV SCH (08:00)
[2018-07-17] MEDS ORDERED: BUPIVACAINE HCL/PF 0.25% (2.5MG/ML) 10 ML VIAL IJ ONE ×2 (08:43)
--- NOTE | 2018-07-17 09:29 | OP ---
DATE OF OPERATION: 07/17/2018 PREOPERATIVE DIAGNOSIS: Voluntary sterilization, multiparity. OPERATION: Laparoscopic bilateral salpingectomy. POSTOPERATIVE DIAGNOSIS: Voluntary sterilization, multiparity, and normal tubes and ovaries. SURGEON: Doreen Coy MD FIBERGLASS BOAT MAKER: GINNY Leonard ANESTHESIA: General. FINDINGS: Normal tubes and ovaries. PROCEDURE: Patient was taken to the operating room, placed in dorsal lithotomy position, prepped and draped in the usual sterile fashion. A time-out was performed in accordance with hospital regulations. A Fonseca catheter was inserted into the bladder. Attention was then drawn to the umbilicus, where an 8-mm umbilical incision was made. Veress needle was inserted into the cavity. Approximately 3-4 L of CO2 was insufflated into the cavity. Veress needle was then removed, and a 5-mm trocar was then inserted. Laparoscopic camera revealed normal tubes and ovaries. Two trocars were placed on the left and right sides. After 5-mm incisions were made, trocars were inserted under direct visualization. Grasper and LigaSure were then used to bilaterally coagulate and cut the fallopian tubes on the left and also on the right. Tubes were removed and submitted to Pathology. Hemostasis was achieved. All instruments were removed. CO2 was removed from the abdomen. Incisions were then closed using 4-0 Biosyn suture in a continuous fashion. Wounds were washed and dressed. Patient tolerated the procedure well. Estimated blood loss was 3 mL. DOREEN COY M.D. [id number]
[2018-07-17 11:02] VITALS: TEMP 97.4
[2018-07-17 12:54] VITALS: BP 111/62; PULSE 62
--- NOTE | 2018-07-17 13:45 | SURG ---
Surgery Electric Motor Winder Note Electric Motor Winder: Aisha Strickland PA-C Date of Service: 07/17/18 Diagnosis: elective serialization Procedure: laparoscopic bilateral salpingectomy I was present for the entirety of the operative procedure. For further detail, please refer to operative report. Visit type - Case Type Case Type: Scheduled - Emergency Emergency Visit: No - New patient This patient is new to me today: Yes Date on this admission: 07/17/18
--- NOTE | 2018-07-18 17:06 | PATH ---
Surgical Pathology Report Patient Name: AGUS CARRERA Med. Rec. #: [id number] /Age/Gender: 1985 (Age: 33) / F Account: [id number] Location: AMBULATORY SURG Taken: 07/17/2018 Received: 07/17/2018 Reported: 07/18/2018 Physicians: Doreen Coy M.D. Specimen(s) Received A: RIGHT FALLOPIAN TUBE B: LEFT FALLOPIAN TUBE Clinical History Desires sterilization Final Diagnosis A. FALLOPIAN TUBE, RIGHT, SALPINGECTOMY: FALLOPIAN TUBE WITH FOCAL ENDOSALPINGOSIS (INCLUDING FIMBRIATED END AND FULL LUMINAL PORTION). B. FALLOPIAN TUBE, LEFT, SALPINGECTOMY: UNREMARKABLE FALLOPIAN TUBE (INCLUDING FIMBRIATED END AND FULL LUMINAL PORTION). Electronically Signed Yamilka Cheng M.D. Gross Description A. Received in formalin labeled "right fallopian tube," is a 7 cm in length fimbriated fallopian tube. The outer surface is davis-pink and smooth. Sectioning reveals an unremarkable lumen. Excel Analyst sections are submitted in 2 cassettes as follows: 1-fimbria; 2-[id number] of fallopian tube. B. Received in formalin labeled "left fallopian tube," is a 7 cm in length fimbriated fallopian tube. The outer surface is natarajan purple and smooth. Sectioning reveals an unremarkable lumen. Excel Analyst sections are submitted in 2 cassettes as follows: 1-fimbria; 2-cross sections of fallopian tube. /07/17/2018 saudi07/17/2018
== END 2018-07-17 12:55 | disposition home or self-care (01) ==
LOC: JASUSAT 04:57
PROVIDERS: ATTEND Obstetrics & Gynecology
PROC: 0U574ZZ Destruction of Bilateral Fallopian Tubes, Percutaneous Endoscopic Approach (ICD-10-PCS; principal; 2018-07-17 08:00)
DX: Z30.2 Encounter for sterilization (principal)
CPT/HCPCS: 88302-TC; 94760

== ENCOUNTER 2018-07-23 01:14 | Emergency (ER) | payer OTHER ==
[2018-07-23 02:08] VITALS: BMI 34.9
--- NOTE | 2018-07-23 02:09 | PDOC ---
History of Present Illness - General Chief Complaint: Pain Stated Complaint: ABD PAIN,S/P SURGERY Time Seen by Provider: 07/23/18 02:08 - History of Present Illness Initial Comments: 07/23/18 02:09 Ms. Rosales is a 33 yo female w/ pmh of recent vaginal child approximately 2 months ago (no complications, patient currently , child well) and tubal ligation last week (elective, no complications) who presents for evaluation of 1 day history of rectal pain. Patient reports pain started last night as she was going to bed and kept her from sleep. Describes the pain as positional and localizes it directly to her anus. The patient denies chest pain, shortness of breath, headache and dizziness. Denies fever, chills, nausea, vomit, diarrhea and constipation. Denies dysuria, frequency, urgency and hematuria. Past History - Past Medical History Allergies/Adverse Reactions: Allergies Allergy/AdvReac Type Severity Reaction Status Date / Time butorphanol tartrate Allergy Intermediate Itching Verified 07/17/18 07:05 [From Stadol] Home Medications: Ambulatory Orders Vit 93/Iron Fum/Folic [ Formula Tablet] 1 each PO DAILY Albuterol Sulfate Inhaler - [Ventolin Hfa Inhaler -] 2 inh PO Q4H PRN 05/27/18 Dextromethorphan Hb/Doxylamine [Vicks Nyquil Cough Liquid] 236 ml PO ONCE Fluticasone Propionate [Flovent Diskus] 250 mcg IH DAILY 05/27/18 Azithromycin [Zithromax Tri-Art (3 DAYS) -] 500 mg PO DAILY #3 tablet 05/30/18 Ibuprofen [Motrin -] 600 mg PO QID PRN #28 tablet 05/30/18 Oxycodone HCl/Acetaminophen [Percocet 5-325 mg Tablet] 1 tab PO Q4H PRN #15 tablet MDD 6 07/17/18 Asthma: Yes (ALLERGEN INDUCED) Cancer: No Cardiac Disorders: Yes (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) CVA: No COPD: No Dementia: No Diabetes: No GI Disorders: No Disorders: No HTN: No Hypercholesterolemia: No Liver Disease: No Seizures: No Thyroid Disease: No - Surgical History Abdominal Surgery: No Appendectomy: No Cardiac Surgery: No Cholecystectomy: No Lung Surgery: No Neurologic Surgery: No Orthopedic Surgery: No - Reproductive History (#): 3 Para: 1 Cervical CA: No Dysfunctional Uterine Bleeding: No Ectopic : No Endometrial CA: No Polycystic Ovaries: No Therapeutic (s) & number: No Tubal Ligation: No Spontaneous : 1 - Immunization History Immunization Up to Date: Yes - Suicide/Smoking/Psychosocial Hx Smoking Status: No Smoking History: Never smoked Have you smoked in the past 12 months: No Number of Cigarettes Smoked Daily: 0 Information on smoking cessation initiated: No Hx Alcohol Use: No Drug/Substance Use Hx: No Substance Use Type: None Hx Substance Use Treatment: No Review of Systems - Review of Systems Comments:: 07/23/18 02:28 GENERAL/CONSTITUTIONAL: No fever or chills. No weakness. HEAD, EYES, EARS, NOSE AND THROAT: No change in vision. No ear pain or discharge. No sore throat. CARDIOVASCULAR: No chest pain or shortness of breath RESPIRATORY: No cough, wheezing, or hemoptysis. GASTROINTESTINAL: No nausea, vomiting, diarrhea or constipation. GENITOURINARY: No dysuria, frequency, or change in urination. MUSCULOSKELETAL: No joint or muscle swelling or pain. No neck or back pain. SKIN: No rash NEUROLOGIC: No headache, vertigo, loss of consciousness, or change in strength/ sensation. ENDOCRINE: No increased thirst. No abnormal weight change HEMATOLOGIC/LYMPHATIC: No anemia, easy bleeding, or history of blood clots. ALLERGIC/IMMUNOLOGIC: No hives or skin allergy. RECTAL: Pain as described. Denies any change in bowel movements or recent straining. *Physical Exam - Vital Signs Last Vital Signs Temp Pulse Resp BP Pulse Ox 97.6 F 66 18 105/62 100 07/23/18 01:14 07/23/18 01:14 07/23/18 01:14 07/23/18 01:14 07/23/18 01:14 - Physical Exam Comments: 07/23/18 02:28 GENERAL: Awake, alert, and fully oriented, in no acute distress HEAD: No signs of trauma, normocephalic, atraumatic EYES: PERRLA, EOMI, sclera anicteric, conjunctiva clear ENT: Auricles normal inspection, hearing grossly normal, nares patent, oropharynx clear without exudates. Moist mucosa NECK: Normal ROM, supple, no lymphadenopathy, JVD, or masses LUNGS: No distress, speaks full sentences, clear to auscultation bilaterally HEART: Regular rate and rhythm, normal S1 and S2, no murmurs, rubs or gallops, peripheral pulses normal and equal bilaterally. ABDOMEN: Soft, nontender, normoactive bowel sounds. No guarding, no rebound. No masses EXTREMITIES: Normal inspection, Normal range of motion, no edema. No clubbing or cyanosis. NEUROLOGICAL: Cranial nerves II through XII grossly intact. Normal speech, normal gait, no focal sensorimotor deficits SKIN: Warm, Dry, normal turgor, no rashes or lesions noted. RECTAL: Minor hemmorhoid noted to anus. Pain reproduced upon digital rectal exam. No fissures or abscess noted. Medical Decision Making - Medical Decision Making 07/23/18 02:29 Ms. Rosales is a 33 yo female w/ pmh as described who presents for evaluation of painful hemorrhoid. Patient educated upon hemorrhoid prevention and treatment and discharging to home. No concern for acute process at this time. Strict return precautions discussed. *DC/Admit/Observation/Transfer Diagnosis at time of Disposition: Hemorrhoid Qualifiers: Hemorrhoid type: unspecified Qualified Code(s): K64.9 - Unspecified hemorrhoids - Discharge Dispostion Disposition: HOME Condition at time of disposition: Fair - Referrals Referrals: Mya Hendrix MD [Primary Care Provider] - - Patient Instructions Printed Discharge Instructions: DI for Hemorrhoids Additional Instructions: For your discomfort, do a sitz bath with epsom salt three times a day. Increase fiber and water intake and decrease meat and cheese intake. Avoid prolonged time on the toilet. Use preparation H for comfort as well. Follow up with your primary doctor within 1 week. Return to the emergency department if you have any new, worsening, or concerning symptoms - Post Discharge Activity
[2018-07-23] MEDS ORDERED: ACETAMINOPHEN 325 MG TABLET (FP) PO ONE (02:27)
[2018-07-23 02:29] VITALS: BP 112/69; PULSE 69; TEMP 97.5
[2018-07-23] MEDS ORDERED: ACETAMINOPHEN 325 MG TABLET (FP) ONE (02:32)
--- NOTE | 2018-07-23 03:13 | PDOC ---
Attending Attestation - Resident Resident Name: Talha Salinas - ED Attending Attestation I have performed the following: I have examined & evaluated the patient, The case was reviewed & discussed with the resident, I agree w/resident's findings & plan, Exceptions are as noted - HPI HPI: 07/23/18 03:07 The patient is a 33 year old female with no significant PMH who presents to the emergency department with rectal pain since last night. She states the rectal pain is exacerbated with positional changes and sitting. She had a tubal ligation approximately 1 week ago and has been taking percocets intermittently since then. Denies any constipation or blood in her stool. Denies any history of hemorrhoids. Denies abdominal pain. The patient denies chest pain, shortness of breath, headache and dizziness. Denies fever, chills, nausea, vomit, diarrhea and constipation. Denies dysuria, frequency, urgency and hematuria. Allergies: NKAP Past surgical history: tubal ligation Social history: No reported alcohol, drug or cigarette - Physicial Exam PE: 07/23/18 03:13 agree with resident exam - Medical Decision Making 07/23/18 03:13 33yo F presents to the ED with rectal pain found to have non thrombosed external hemorrhoid. Pt well appearing, exam otherwise wnl (tubal ligation abd scars all c/d/i w/o surrounding erythema or induration). Vitals wnl. Plan for supportive treatment, pt clinically stable for DC home I discussed the physical exam findings, ancillary test results and final diagnoses with the patient. I answered all of the patient's questions. The patient was satisfied with the care received and felt comfortable with the discharge plan and treatment plan. The patient will call their primary care physician within 24 hours to arrange follow-up and will return to the Emergency Department with any new, persistent or worsening symptoms.
== END 2018-07-23 03:01 | disposition home or self-care (01) ==
LOC: JER 01:14
DX: K64.9 Unspecified hemorrhoids (principal)
CPT/HCPCS: 99281-25

== ENCOUNTER 2018-11-12 14:10 | Emergency (ER) | payer OTHER ==
--- NOTE | 2018-11-12 14:18 | PDOC ---
Rapid Medical Evaluation Time Seen by Provider: 11/12/18 14:17 Medical Evaluation: Allergies Allergy/AdvReac Type Severity Reaction Status Date / Time butorphanol tartrate Allergy Intermediate Itching Verified 07/17/18 07:05 [From Stadol] 11/12/18 14:17 I have performed a brief in-person evaluation of this patient. The patient presents with a chief complaint of:R eyelid edema this am Pertinent physical exam findings:eyelid edema, no sig erythema, conjunc clear I have ordered the following:nothing The patient will proceed to the ED for further evaluation. Discharge Disposition - Diagnosis Eyelid edema Qualifiers: Laterality: right Qualified Code(s): H02.843 - Edema of right eye, unspecified eyelid - Referrals - Patient Instructions - Post Discharge Activity
[2018-11-12 14:20] VITALS: BP 111/63; PULSE 92; TEMP 98.4; BMI 35.6
[2018-11-12] MEDS ORDERED: AMOX TR/POT CLAV 875MG/125MG TABLETS (FP) PO ONE (14:30)
--- NOTE | 2018-11-12 14:33 | PDOC ---
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 Disorders: 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) CVA: No COPD: No Dementia: No Diabetes: No GI Disorders: No Disorders: No HTN: No Hypercholesterolemia: No Liver Disease: No Seizures: No Thyroid Disease: No - Surgical History Abdominal Surgery: No Appendectomy: No Cardiac Surgery: No Cholecystectomy: No Lung Surgery: No Neurologic Surgery: No Orthopedic Surgery: No - Reproductive History (#): 3 Para: 1 Cervical CA: No Dysfunctional Uterine Bleeding: No Ectopic : No Endometrial CA: No Polycystic Ovaries: No Therapeutic (s) & number: No Tubal Ligation: No Spontaneous : 1 - Immunization History Immunization Up to Date: Yes - Suicide/Smoking/Psychosocial Hx Smoking Status: No Smoking History: Never smoked Have you smoked in the past 12 months: No Number of Cigarettes Smoked Daily: 0 Information on smoking cessation initiated: No Hx Alcohol Use: No Drug/Substance Use Hx: No Substance Use Type: None Hx Substance Use Treatment: No *Physical Exam - Vital Signs Last Vital Signs Temp Pulse Resp BP Pulse Ox 98.4 F 92 H 18 111/63 98 11/12/18 14:18 11/12/18 14:18 11/12/18 14:18 11/12/18 14:18 11/12/18 14:18 - Physical Exam General Appearance: No: Apparent Distress HEENT: positive: Other (+redness and mild swelling of R upper eyelid, no eye injection, FROM of eye, no eye drainage, no pain on eye movement, no proptosis, no stye or chalazion noted) Neurologic: positive: Alert, Normal Mood/Affect Medical Decision Making - Medical Decision Making 33 y/o F hx of asthma presents with R upper eyelid swelling from last night. Denies fever, eye drainage, blurred vision, diplopia, pain on eye movement, photophobia, FB sensation in eye. Possible developing preseptal cellulitis; no current evidence of orbital cellulitis Given Augmentin 11/12/18 14:35 *DC/Admit/Observation/Transfer Diagnosis at time of Disposition: Preseptal cellulitis of right eye - Discharge Dispostion Disposition: HOME Condition at time of disposition: Stable Decision to Admit order: No - Prescriptions Prescriptions: Amoxicillin/Potassium Clav [Augmentin 875-125 Tablet] 1 each PO BID #14 tablet - Referrals - Patient Instructions Additional Instructions: Thank you for choosing [facility]. It was a pleasure taking care of you. Take the antibiotics as prescribed Follow-up with your doctor in 2 days Return to the Emergency Department if your symptoms worsen or persist, you have fever, unable to move eye or pain on moving eyes, changes in vision or other concerning symptoms. - Post Discharge Activity
[2018-11-12] MEDS ORDERED: AMOX TR/POT CLAV 875MG/125MG TABLETS (FP) ONE (14:34)
== END 2018-11-12 14:40 | disposition home or self-care (01) ==
LOC: JERFT 14:10
DX: L03.213 Periorbital cellulitis (principal); R00.2 Palpitations
CPT/HCPCS: 99281-25

== ENCOUNTER 2019-05-26 22:30 | Emergency (ER) | payer OTHER ==
[2019-05-26 23:06] VITALS: BMI 34.5
[2019-05-27] MEDS ORDERED: SODIUM CHLORIDE 1,000 ML IV STA (00:25)
[2019-05-27] MEDS ORDERED: ONDANSETRON 4 MG/2 ML VIAL IVPUSH STA (00:25)
[2019-05-27] MEDS ORDERED: FAMOTIDINE 20 MG/50 ML IVPB 20 MG/50 ML MG IVPB ONE ×2 (00:26→00:29)
[2019-05-27] MEDS ORDERED: ONDANSETRON 4 MG/2 ML VIAL ONE (00:29)
[2019-05-27 00:42] LABS: BASO % 0.4 % (0-2.0); EOS % 1.6 % (0-4.5); HEMATOCRIT 39.9 % (32.4-45.2); HEMOGLOBIN 13.2 GM/dL (10.7-15.3); LYMPH % 14.6 % (8-40); MCH 30.1 pg (25.7-33.7); MCHC 33.2 g/dl (32.0-36.0); MEAN CELL VOLUME 90.9 fl (80-96); MEAN PLT VOLUME 10.4 fl (7.5-11.1); MONO % 4.9 % (3.8-10.2); NEUT % 78.5 % (42.8-82.8); PLATELET COUNT 239 K/MM3 (134-434); RBC 4.39 M/mm3 (3.60-5.2); RDW 13.8 % (11.6-15.6)
--- NOTE | 2019-05-27 00:45 | PDOC ---
Documentation entered by Jim Cordero SCRIBE, acting as scribe for Colleen Hess MD. Colleen Hess MD: This documentation has been prepared by the Gil ambrocio Xhesika, SCRIBE, under my direction and personally reviewed by me in its entirety. I confirm that the documentation accurately reflects all work, treatment, procedures, and medical decision making performed by me. History of Present Illness - General Chief Complaint: Pain Stated Complaint: ABD/PAIN/VOMITING/DIZZINESS/CHILLS Time Seen by Provider: 05/27/19 00:22 History Source: Patient Exam Limitations: No Limitations - History of Present Illness Initial Comments: 05/27/19 00:30 The patient is a 34 year old female with a significant PMH of asthma, GERD and HTN who presents to the emergency department for epigastric pain, nausea, vomiting, chills and dizziness since this morning. The patient describes her epigastric pain as severe, sharp, feels like contractions. The patient denies chest pain, shortness of breath, headache and dizziness. Denies fever, cough, diarrhea and constipation. Denies dysuria, frequency, urgency and hematuria. 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) CVA: No COPD: No Dementia: No Diabetes: No GI Disorders: No Disorders: No HTN: No Hypercholesterolemia: No Liver Disease: No Seizures: No Thyroid Disease: No - Surgical History Abdominal Surgery: No Appendectomy: No Cardiac Surgery: No Cholecystectomy: No Lung Surgery: No Neurologic Surgery: No Orthopedic Surgery: No - Reproductive History (#): 3 Para: 1 Cervical CA: No Dysfunctional Uterine Bleeding: No Ectopic : No Endometrial CA: No Polycystic Ovaries: No Therapeutic (s) & number: No Tubal Ligation: No Spontaneous : 1 - Immunization History Immunization Up to Date: Yes - Psycho Social/Smoking Cessation Hx Smoking Status: No Smoking History: Never smoked Have you smoked in the past 12 months: No Number of Cigarettes Smoked Daily: 0 Hx Alcohol Use: No Drug/Substance Use Hx: No Substance Use Type: None Hx Substance Use Treatment: No Review of Systems - Review of Systems Able to Perform ROS?: Yes Comments:: 05/27/19 00:31 GENERAL/CONSTITUTIONAL: No fever. No weakness. +chills. HEAD, EYES, EARS, NOSE AND THROAT: No change in vision. No ear pain or discharge. No sore throat. CARDIOVASCULAR: No chest pain or shortness of breath. RESPIRATORY: No cough, wheezing, or hemoptysis. GASTROINTESTINAL: + nausea, +vomiting. No diarrhea or constipation. GENITOURINARY: No dysuria, frequency, or change in urination. MUSCULOSKELETAL: +epigastric pain. No joint or muscle swelling or pain. No neck or back pain. SKIN: No rash NEUROLOGIC: +dizziness. No headache, vertigo, loss of consciousness, or change in strength/sensation. ENDOCRINE: No increased thirst. No abnormal weight change. HEMATOLOGIC/LYMPHATIC: No anemia, easy bleeding, or history of blood clots. ALLERGIC/IMMUNOLOGIC: No hives or skin allergy. *Physical Exam - Vital Signs Last Vital Signs Temp Pulse Resp BP Pulse Ox 98.5 F 107 H 20 112/68 99 05/26/19 23:04 05/26/19 23:04 05/26/19 23:04 05/26/19 23:04 05/26/19 23:04 - Physical Exam 05/27/19 00:31 GENERAL: Awake, alert, and fully oriented, in no acute distress HEAD: No signs of trauma EYES: PERRLA, EOMI, sclera anicteric, conjunctiva clear ENT: Auricles normal inspection, hearing grossly normal, nares patent, oropharynx clear without exudates. Moist mucosa NECK: Normal ROM, supple, no lymphadenopathy, JVD, or masses LUNGS: Breath sounds equal, clear to auscultation bilaterally. No wheezes, and no crackles HEART: Regular rate and rhythm, normal S1 and S2, no murmurs, rubs or gallops ABDOMEN: +epigastric pain TTP. Soft, normoactive bowel sounds. No guarding, no rebound. No masses EXTREMITIES: Normal range of motion, no edema. No clubbing or cyanosis. No cords, erythema, or tenderness NEUROLOGICAL: Cranial nerves II through XII grossly intact. ED Treatment Course - LABORATORY CBC & Chemistry Diagram: 05/27/19 00:20 05/27/19 00:20 Medical Decision Making - Medical Decision Making 05/27/19 00:52 34-year-old female presents with 1 day of epigastric pain associate with nausea and vomiting Her only past surgical history has been tubal ligations On her abdominal exam she has no lower quadrant tenderness or rebound and her upper abdominal exam has a very focal tenderness in epigastric area Differential includes gastritis, cholecystitis Patient is receiving IV fluids, Zofran,abdominal ultrasound, CBC, chemistry, lipase 05/27/19 01:55 Labs are essentially unremarkable CBC does not show any significant anemia or leukocytosis Chemistries renal function test, glucose, and LFTs are unremarkable 05/27/19 02:03 Gallbladder ultrasound showed liver mildly enlarged versus Reena's lobe No acute gallbladder pathology Common bile duct normal No acute renal pathology Impression no sonographic evidence for acute right upper quadrant pathology Discharge - Discharge Information Problems reviewed: Yes Clinical Impression/Diagnosis: Epigastric pain Nausea and vomiting Qualifiers: Vomiting type: unspecified Vomiting Intractability: non-intractable Qualified Code(s): R11.2 - Nausea with vomiting, unspecified Condition: Stable Disposition: HOME - Admission No - Additional Discharge Information Prescriptions: Famotidine [Pepcid] 20 mg PO DAILY #7 tablet MDD 1 tab Ondansetron [Zofran *Odt*] 4 mg SL TID PRN #21 od.tablet MDD 3 tabs PRN Reason: Nausea And/Or Vomiting - Follow up/Referral Referrals: Angie Malin [Primary Care Provider] - - Patient Discharge Instructions Patient Printed Discharge Instructions: DI for Vomiting -- Adult, DI for Epigastric Pain Additional Instructions: Please pick out hand your medications at [facility] pharmacy and take them as prescribed follow up with your primary physician Return for any worsening symptoms - Post Discharge Activity
[2019-05-27 01:08] LABS: URINE APPEARANCE CLEAR; URINE BILIRUBIN NEGATIVE (NEGATIVE); URINE COLOR YELLOW; URINE GLUCOSE (UA) NEGATIVE (NEGATIVE); URINE KETONE NEGATIVE (NEGATIVE); URINE LEUK ESTERASE NEGATIVE (NEGATIVE); URINE NITRITE NEGATIVE (NEGATIVE); URINE PROTEIN NEGATIVE (NEGATIVE)
[2019-05-27 01:18] LABS: ALBUMIN 3.4 g/dl (3.4-5.0); BILIRUBIN,TOTAL 0.6 mg/dL (0.2-1); BLOOD UREA NITROGEN 12.4 mg/dL (7-18); CALCIUM 8.8 mg/dL (8.5-10.1); CREATININE 0.8 mg/dL (0.55-1.3)
[2019-05-27 02:14] VITALS: BP 115/74; PULSE 98; TEMP 98.2
[2019-05-27] MEDS ORDERED: ACETAMINOPHEN 650 MG/20.3 ML ORAL SOLUTION (CUPS) PO ONE (02:17)
[2019-05-27] MEDS ORDERED: MAG HYDROX/AL HYDROX/SIMETH 30 ML UNIT-DOSE CUP PO ONE (02:17)
[2019-05-27] MEDS ORDERED: MAG HYDROX/AL HYDROX/SIMETH 30 ML UNIT-DOSE CUP ONE (02:20)
[2019-05-27] MEDS ORDERED: ACETAMINOPHEN 325 MG TABLET (FP) ONE (02:20)
== END 2019-05-27 02:27 | disposition home or self-care (01) ==
LOC: JER 22:30
DX: R10.13 Epigastric pain (principal); R11.2 Nausea with vomiting, unspecified; K21.9 Gastro-esophageal reflux disease without esophagitis; Z87.09 Personal history of other diseases of the respiratory system; Z86.79 Personal history of other diseases of the circulatory system
CPT/HCPCS: 36415; 76705-TC; 80053; 81003; 83690; 85025; 99285-25; J7030

== ENCOUNTER 2020-05-31 18:54 | Emergency (ER) | payer OTHER | END 2020-05-31 19:28 | disposition home or self-care (01) | LOC: JVIRT 18:54 | DX: Z11.52 Encounter for screening for COVID-19 (principal) | CPT/HCPCS: C9803; G2251-GT; Q3014-GT; U0003 ==

== ENCOUNTER 2020-06-05 11:21 | Emergency (ER) | payer OTHER | END 2020-06-05 12:08 | disposition home or self-care (01) | LOC: JVIRT 11:21 | DX: U07.1 COVID-19 (principal) | CPT/HCPCS: C9803; G2251-GT; U0003 ==

== ENCOUNTER 2021-02-27 22:01 | Emergency (ER) | payer OTHER ==
[2021-02-27 22:30] VITALS: BP 110/75; PULSE 68; TEMP 98.6; BMI 33.3
[2021-02-27] MEDS ORDERED: IBUPROFEN 600 MG TABLET (FP) PO ONE ×2 (22:56→23:02)
== END 2021-02-27 23:33 | disposition home or self-care (01) ==
LOC: JERFT 22:01 → JER 22:01 → JERFT 23:33
DX: S92.524A Nondisplaced fracture of middle phalanx of right lesser toe(s), initial encounter for closed fracture (principal); W21.89XA Striking against or struck by other sports equipment, initial encounter
CPT/HCPCS: 73630-TC-RT-FY; 99283-25

== ENCOUNTER 2021-09-18 08:39 | Emergency (ER) | payer OTHER ==
[2021-09-18 08:46] VITALS: BMI 34.4
[2021-09-18] MEDS ORDERED: FAMOTIDINE 20 MG/50 ML IVPB 20 MG/50 ML MG IVPB ONE ×2 (09:30→09:50)
[2021-09-18] MEDS ORDERED: SODIUM CHLORIDE 0.9% 500 ML INFUS.BAG IV ONE (09:30)
[2021-09-18] MEDS ORDERED: ONDANSETRON 4 MG/2 ML VIAL IVPUSH ONE (09:30)
[2021-09-18] MEDS ORDERED: ONDANSETRON 4 MG/2 ML VIAL ONE (09:50)
[2021-09-18 11:32] LABS: BASO % 0.3 % (0-2.0); EOS % 1.8 % (0-4.5); HEMATOCRIT 40.9 % (32.4-45.2); HEMOGLOBIN 13.7 GM/dL (10.7-15.3); LYMPH % 28.2 % (8-40); MCH 29.8 pg (25.7-33.7); MCHC 33.5 g/dl (32.0-36.0); MONO % 5.4 % (3.8-10.2); NEUT % 64.3 % (42.8-82.8); PLATELET COUNT 254 10^3/uL (134-434); RDW 14.1 % (11.6-15.6); WHITE BLOOD COUNT 6.2 K/mm3 (4.0-10.0)
[2021-09-18 11:38] LABS: EPI CELLS 16 /uL (0-25.1); HCG,QUALITATIVE URINE Negative; HYALINE CASTS 1 /uL (0-3.1); URINE APPEARANCE CLEAR; URINE BACTERIA 234 /uL (0-1359); URINE BILIRUBIN NEGATIVE (NEGATIVE); URINE COLOR YELLOW; URINE GLUCOSE (UA) NEGATIVE (NEGATIVE); URINE KETONE TRACE (NEGATIVE); URINE LEUK ESTERASE TRACE (NEGATIVE); URINE NITRITE NEGATIVE (NEGATIVE); URINE PROTEIN NEGATIVE (NEGATIVE); URINE RBC 3 /uL (0-23.9); URINE UROBILINOGEN 0.2 mg/dL (0.2-1.0); URINE WBC 31 /uL (0-25.8)
[2021-09-18 11:52] LABS: CALCIUM 9.2 mg/dL (8.5-10.1)
[2021-09-18 11:53] LABS: BLOOD UREA NITROGEN 6.7 mg/dL (7-18)
[2021-09-18 11:54] LABS: ALBUMIN 3.6 g/dl (3.4-5.0)
[2021-09-18 11:56] LABS: CREATININE 0.8 mg/dL (0.55-1.3)
[2021-09-18 11:57] LABS: BILIRUBIN,TOTAL 0.5 mg/dL (0.2-1); TOT PROT 7.4 g/dl (6.4-8.2)
[2021-09-18 12:18] VITALS: BP 127/68; PULSE 89; TEMP 98.3
== END 2021-09-18 12:18 | disposition home or self-care (01) ==
LOC: JER 08:39
PROC: 3E033GC Introduction of Other Therapeutic Substance into Peripheral Vein, Percutaneous Approach (ICD-10-PCS; principal; 2021-09-18)
PROC: 3E033GC Introduction of Other Therapeutic Substance into Peripheral Vein, Percutaneous Approach (ICD-10-PCS; 2021-09-18)
DX: R10.12 Left upper quadrant pain (principal)
CPT/HCPCS: 36415; 80053; 81003; 83690; 84703; 85025; 99284-25

== ENCOUNTER 2023-01-24 09:13 | Emergency (ER) | payer OTHER ==
[2023-01-24 09:31] VITALS: BP 106/71; PULSE 104; RESP 17; TEMP 98.6; BMI 39.6
[2023-01-24] MEDS ORDERED: ALBUTEROL SO4 2.5/IPRATROPIUM 0.5 INH SOL 3 ML VIAL.NEB. NEB ONE ×2 (09:39→09:47)
[2023-01-24] MEDS ORDERED: predniSONE 20 MG TABLET (UD) ONE (09:47)
[2023-01-24] MEDS ORDERED: predniSONE 20 MG TABLET (UD) PO SCH (10:00)
== END 2023-01-24 11:10 | disposition home or self-care (01) ==
LOC: JERFT 09:13
PROC: 3E0F7GC Introduction of Other Therapeutic Substance into Respiratory Tract, Via Natural or Artificial Opening (ICD-10-PCS; principal; 2023-01-24)
DX: R05.9 Cough, unspecified (principal); R12 Heartburn; R09.81 Nasal congestion; R06.02 Shortness of breath; M54.9 Dorsalgia, unspecified; J40 Bronchitis, not specified as acute or chronic; Z20.822 Contact with and (suspected) exposure to COVID-19
CPT/HCPCS: 0241U-QW; 71046-TC-FY; 99284-25

== ENCOUNTER 2023-05-26 10:37 | Emergency (ER) | payer OTHER ==
[2023-05-26 10:45] VITALS: BP 120/70; PULSE 89; RESP 18; TEMP 98.6; BMI 39.9
== END 2023-05-26 11:42 | disposition home or self-care (01) ==
LOC: JERFT 10:37 → JER 10:37 → JERFT 11:42
DX: H57.12 Ocular pain, left eye (principal); H02.845 Edema of left lower eyelid; L03.213 Periorbital cellulitis; H00.015 Hordeolum externum left lower eyelid
CPT/HCPCS: 99283-25